=== PATIENT | male | born 1950 | race Hispanic/Latino ===

== ENCOUNTER 2017-09-21 08:55 | Outpatient (CLI) | payer MEDICARE, MEDICAID ==
--- NOTE | 2017-09-24 10:51 | PFT ---
PATIENT HISTORY: HEIGHT: 65 IN WEIGHT: 165 LBS SMOKER: SMOKES HOW LON YEARS PACKS PER DAY: 1 PACK/4 DAYS PRODUCTIVE COUGH: LUNG DISEASE: PHYSICIAN INTERPRETATION FINAL REPORT: FEV1 is normal at 2.73, FVC is normal at 3.24, FEF 25-75 is normal. Maximum voluntary ventilation is reduced. Total lung capacity is normal. There is air trapping. Diffusion was not measured. IMPRESSION: Overall, this spirometry shows normal expiratory flows with normal lung volumes air trapping is noted. Clinical correlation is recommended Hydroelectric Operator: REGINA Visual Manager: REGINA TOBIN
== END 2017-09-21 08:56 | disposition home or self-care (01) ==
LOC: CP 08:55
PROVIDERS: ATTEND Internal Medicine
DX: J44.9 Chronic obstructive pulmonary disease, unspecified (principal)
CPT/HCPCS: 94060; 94727

== ENCOUNTER 2017-12-05 09:03 | Emergency (ER) | payer MEDICARE, MEDICAID ==
--- NOTE | 2017-12-05 09:48 | RAD ---
CHEST 2 VIEWS: Date: 12/05/17 HISTORY: Dyspnea. COMPARISON: 06/13/04. FINDINGS: Normal cardiac silhouette. Pulmonary vessels and hilum are normal. No consolidation or mass. No pneum othorax or osseous abnormalities. IMPRESSION: No acute cardiopulmonary process. POS: [facility]
[2017-12-05] MEDS ORDERED: Dexamethasone 4 mg/ml Vial ONE (13:01)
== END 2017-12-05 14:43 | disposition home or self-care (01) ==
LOC: ERS 09:03
DX: R05 Cough (principal); R06.2 Wheezing; J44.9 Chronic obstructive pulmonary disease, unspecified; I25.10 Atherosclerotic heart disease of native coronary artery without angina pectoris; E11.9 Type 2 diabetes mellitus without complications; I10 Essential (primary) hypertension; E78.5 Hyperlipidemia, unspecified; F17.210 Nicotine dependence, cigarettes, uncomplicated; I25.2 Old myocardial infarction
CPT/HCPCS: 71046; 94640; J1100; J7620

== ENCOUNTER 2018-01-02 08:43 | Emergency (ER) | payer MEDICARE, MEDICAID ==
[~2018-01-02 08:43] MED LIST: ISOVUE-370 76%-LOCM 1 ML ONE
[2018-01-02 09:56] LABS: #Basophils 0.1 thou/uL (0.0-0.2); #Eosinphils 0.2 thou/uL (0.0-0.7); #Lymphocytes 3.5 thou/uL (1.20-3.40); #Monocytes 0.6 thou/uL (0.11-0.59); #Neutrophils 4.6 thou/uL (1.40-6.50); %Basophils 0.9 % (0.0-1.0); %Lymphocytes 39.6 % (21.0-51.0); %Monocytes 6.1 % (0.0-10.0); %Neutrophils 51.3 % (42.0-75.0); Hemoglobin 16.2 g/dL (14.0-18.0); Mean Corpuscular HGB CONC 32.7 g/dL (32.0-36.0); Mean Corpuscular Hemoglobin 32.3 pg (27.0-31.0); Mean Corpuscular Volume 98.6 fl (80.0-94.0); Mean Platelet Volume 6.8 fL (7.4-10.4); Platelet Count 278 thou/uL (130-400); RBC Distribution Width 12.9 % (11.5-14.5); Red Blood Cell (RBC) Count 5.04 mill/uL (4.70-6.10); White Blood Cell (WBC) Count 8.9 thou/uL (4.8-10.8)
[2018-01-02 10:16] LABS: ALT (SGPT) 69 U/L (8-55); AST (SGOT) 43 U/L (5-34); Albumin 4.6 g/dL (3.4-4.8); Alkaline Phosphatase 82 U/L (40-150); Anion Gap 13 mmol/L (10-20); BUN (Urea Nitrogen) 17 mg/dL (8.4-25.7); Bilirubin, Total 0.4 mg/dL (0.2-1.2); CRP (Inflammatory) Less than 0.50 mg/dL (= or < 0.5); Calc. Creatinine Clearance 0 mL/min (70-130); Calcium 10.1 mg/dL (7.8-10.44); Carbon Dioxide 22 mmol/L (23-31); Chloride 106 mmol/L (98-107); Estimated GFR-MDRD 72; Globulin 3.7 g/dL (2.4-3.5); Glucose 182 mg/dL (80-115); Potassium 4.6 mmol/L (3.5-5.1); Protein, Total 8.3 g/dL (5.8-8.1); Sodium 136 mmol/L (136-145)
--- NOTE | 2018-01-02 12:33 | CT ---
CT NECK WITH CONTRAST: Multiple tomograms were obtained through the neck with IV enhancement. HISTORY: Lump on back of neck with pain. A marker is placed at site of concern which is in the retroareolar region in the right neck. FINDINGS: Parotid glands appear unremarkable. Submandibular gland is unremarkable. Sublingual gland is unremarkable. Thyroid unremarkable. Nasopharynx unremarkable. In the oropharynx, there is asymmetric density in the left tonsillar are which obscures the left rodriguez droglottic angle. This should be evaluated through direct examination to rule out a tonsillar mass. The area of concern measures approximately 2 cm AP dimension and may exhibit some mild enhancement. There is also abnormal asymmetry extending inferiorly into the hypopharynx on the left which appears to involve the left vallecula piriform sinus. This is concerning for a neoplastic process. The priscilla nx appears unremarkable. Marbleizer space unremarkable. Retropharyngeal space unremarkable. Atherosclerotic change is seen i n the proximal left internal carotid artery which may represent mild stenosis. Unremarkable level I lymph nodes. Level II lymph nodes are nonspecific bilaterally. Jugulodigastric node on the right measures 1.3 cm. There is a tiny amount of level II lymph nodes. Nonspecific level IV lymph nodes are seen in the sup raclavicular region bilaterally which are subcentimeter. No level II adenopathy is seen. There appears to be a lipoma in the posterior right neck at the site of the marker which probably rep resents an intramuscular lipoma extending to the subcutaneous tissues measuring 2.5 cm AP dimension x 1.0 cm width. This probably corresponds to the palpable nodule. Paranasal sinuses and mastoids are well aerated. There are mild to moderate degenerative changes in the cervical spine. There is mucous retention cyst in the left maxillary antrum measuring approximately 1.5 cm. IMPRESSION: 1. Abnormal density involving the palatine tonsil on the left in the oropharynx producing asymmetry. There is asymmetry which appears to extend inferiorly into the vallecula and left piriform sinus. Neoplasm should be excluded. Recommend ENT consultation and direct examination. 2. There is evidence of a lipoma extending to the subcutaneous tissues of posterior right neck in th e area of the skin marker. POS: [facility]
--- NOTE | 2018-01-02 12:40 | CT ---
CT CHEST WITHOUT CONTRAST: HISTORY: Evaluate for mass. TECHNIQUE: Multiple axial tomograms obtained through the chest without IV enhancement. FINDINGS: The lung smith are clear. No effusion. No infiltrate. No evidence of pulmonary mass or nodule. The mediastinum is unremarkable. Images through the upper abdomen are unremarkable. IMPRESSION: Unremarkable CT chest. POS: [facility]
== END 2018-01-02 12:35 | disposition home or self-care (01) ==
LOC: ERS 08:43
DX: D17.0 Benign lipomatous neoplasm of skin and subcutaneous tissue of head, face and neck (principal); J39.2 Other diseases of pharynx; I25.2 Old myocardial infarction; E11.9 Type 2 diabetes mellitus without complications; I10 Essential (primary) hypertension; E78.5 Hyperlipidemia, unspecified; F17.210 Nicotine dependence, cigarettes, uncomplicated; Z79.4 Long term (current) use of insulin; Z79.82 Long term (current) use of aspirin; Z79.899 Other long term (current) drug therapy
CPT/HCPCS: 70491; 71250; 80053; 85025; 85652; 86140; 99406

== ENCOUNTER 2018-02-24 08:44 | Outpatient (CLI) | payer MEDICARE, MEDICAID ==
--- NOTE | 2018-02-24 11:12 | CT ---
CT PULMONARY LUNG SCAN WITHOUT CONTRAST: INDICATION: A 67-year-old male with a 40+ pack smoking history. FINDINGS: There are some areas of subsegmental volume loss within the lower lobe. No suspicious pulmonary nodu le is evident. There is scattered emphysema. There are coronary artery and thoracic aortic calcific ations. There is mild ectasia of the ascending artery measuring 4 cm. There is mild aneurysmal dila tation of the aortic measuring 3.2 cm. The descending thoracic aorta at the level of the right main pulmonary artery measures 3 cm. No lymphadenopathy is evident. The gallbladder is surgically absent . . There is scattered degenerative change. IMPRESSION: 1. Lung RADS category 2 - benign. Recommend annual low-dose CT evaluation of the lungs. 2. Category S: Emphysema, coronary artery thoracic aorta calcifications, and mild aneurysmal dilata tion of the aortic arch and descending thoracic aorta. POS: [facility]
== END 2018-02-24 08:45 | disposition home or self-care (01) ==
LOC: CT 08:44
PROVIDERS: ATTEND Family Medicine
DX: F17.210 Nicotine dependence, cigarettes, uncomplicated (principal); J43.9 Emphysema, unspecified; I25.10 Atherosclerotic heart disease of native coronary artery without angina pectoris; I70.0 Atherosclerosis of aorta; I71.2 Thoracic aortic aneurysm, without rupture
CPT/HCPCS: G0297

== ENCOUNTER 2018-03-16 10:33 | Observation (INO) | payer MEDICARE, MEDICAID ==
[2018-03-16 11:14] LABS: #Basophils 0.1 thou/uL (0.0-0.2); #Eosinphils 0.2 thou/uL (0.0-0.7); #Monocytes 0.6 thou/uL (0.11-0.59); #Neutrophils 5.1 thou/uL (1.40-6.50); %Eosinophils 2.2 % (0.0-10.0); %Lymphocytes 39.6 % (21.0-51.0); %Monocytes 5.8 % (0.0-10.0); %Neutrophils 51.5 % (42.0-75.0); Hemoglobin 15.4 g/dL (14.0-18.0); Mean Corpuscular HGB CONC 33.8 g/dL (32.0-36.0); Mean Corpuscular Hemoglobin 32.7 pg (27.0-31.0); Mean Corpuscular Volume 96.7 fl (80.0-94.0); Platelet Count 250 thou/uL (130-400); RBC Distribution Width 12.5 % (11.5-14.5); Red Blood Cell (RBC) Count 4.71 mill/uL (4.70-6.10)
[2018-03-16 11:27] LABS: ALT (SGPT) 61 U/L (8-55); AST (SGOT) 40 U/L (5-34); Albumin 4.3 g/dL (3.4-4.8); Alkaline Phosphatase 83 U/L (40-150); Anion Gap 10 mmol/L (10-20); BUN (Urea Nitrogen) 15 mg/dL (8.4-25.7); Bilirubin, Total 0.4 mg/dL (0.2-1.2); CK (CPK) 201 U/L (30-200); Calc. Creatinine Clearance 0 mL/min (70-130); Calcium 9.7 mg/dL (7.8-10.44); Carbon Dioxide 21 mmol/L (23-31); Chloride 108 mmol/L (98-107); Estimated GFR-MDRD 87; Globulin 3.4 g/dL (2.4-3.5); Glucose 164 mg/dL (80-115); Potassium 4.4 mmol/L (3.5-5.1); Protein, Total 7.7 g/dL (5.8-8.1); Sodium 135 mmol/L (136-145)
[2018-03-16 11:31] LABS: CKMB 6.3 ng/mL (0-6.6); Troponin I Less than 0.010 ng/mL (< 0.028)
--- NOTE | 2018-03-16 11:39 | RAD ---
SINGLE VIEW CHEST: Date: 03/16/18 COMPARISON: 07/01/17. HISTORY: Dizziness, near syncope, and chest pain. FINDINGS: Single view of the chest shows a normal sized cardiomediastinal silhouette. There is no evidence of c onsolidation, mass, or pleural effusion. The bones are unremarkable. IMPRESSION: No evidence of acute cardiopulmonary disease. POS: [facility]
--- NOTE | 2018-03-16 11:53 | CT ---
HEAD CT WITHOUT CONTRAST: Date: 03/16/18 HISTORY: Headache. Presyncopal episodes, intermittent. COMPARISON: 07/01/17. TECHNIQUE: A noncontrast head CT is performed from the skull base to the skull vertex. FINDINGS: No parenchymal hemorrhage or extra-axial hematoma. No midline shift. Basilar cisterns are patent. Bra in volume is age-appropriate. Cortical hsu-white matter differentiation is preserved. Ventricles and sulci are patent and symmetric. Calvarium is intact. Adequate aeration of the sinuses and mastoid ai r cells. Cavernous carotid atherosclerosis is noted. IMPRESSION: No acute intracranial process. POS: [facility]
--- NOTE | 2018-03-16 12:15 | PDOC.FPRHP ---
- History of Present Illness Chief Complaint: Chest Pain History of Present Illness: 67 yo male presents for evaluation of chest pain and a feeling of dizziness. He states he has had long standing chest pain episodes that have occurred for multiple years. He states he has not seen Dr. Leon, his road roller engineer, regularly because of financial problems. He states that he has been compliant with his medication regimen. He notes that the pain comes and goes. When it is most severe he states it feels like electrical shocks and then it subsides. He states the pain does not radiate anywhere. He states that nothing makes the pain better. He states the pain is made worse with exertion such as walking. He notes that he does not do much else to exert himself any more. The pain is not reproducible and he did not take any of his home Nitro to try to make it better. He states that yesterday he had an episode of dizziness associated with the chest pains and that is what prompted him to be seen today. He notes that he did not have weakness on one side or the other. He denies vision changes, or loss of consciousness. He states he did not fall down. He states that the dizziness went away when he would rest. No other complaints today. ED Course: 81 mg Aspirin - Allergies/Adverse Reactions Allergies Allergy/AdvReac Type Severity Reaction Status Date / Time No Known Allergies Allergy Verified 05/11/17 23:10 - Home Medications Medication Instructions Recorded Confirmed Type Atorvastatin Calcium [Lipitor] 40 mg PO HS 02/01/17 03/16/18 History Carvedilol 6.25 mg PO BID 02/01/17 03/16/18 History Clopidogrel Bisulfate [Clopidogrel] 75 mg PO DAILY 02/01/17 03/16/18 History Fenofibrate 145 mg PO DAILY 02/01/17 03/16/18 History Lisinopril 2.5 mg PO DAILY 02/01/17 03/16/18 History Pregabalin [Lyrica] 75 mg PO BID 02/01/17 03/16/18 History metFORMIN HCl 1,000 mg PO BID- 02/01/17 03/16/18 History Insulin Glargine,Hum.Rec.Anlog 30 unit SQ BID 03/10/17 03/16/18 History [Lantus Solostar] Aspirin [Aspirin EC] 81 mg PO DAILY 05/12/17 03/16/18 History Nitroglycerin [Nitrostat] 0.4 mg SL Q5MIN PRN 05/12/17 03/16/18 History Levels-3/DHA/EPA/Fish Oil [Fish Oil 1,000 mg PO DAILY 05/12/17 03/16/18 History 1,000 mg Softgel] - History PMHx: CAD s/p stent, CHF, DM2, GERD, OA, HLD, Tobacco abuse PSHx: Cholecystectomy, Right hand surgery, Stent placement FHx: Non-Contributory Social: Current everyday smoker, 1/2 PPD. Greater than 80 pack year history. No alcohol or drug use. Lives at home with . - Review of Systems General: denies: fever/chills, weight/appetite/sleep changes ENT: denies: nasal congestion Respiratory: reports: shortness of breath, exercise intolerance. denies: cough , congestion Cardiovascular: reports: chest pain. denies: palpitation, edema Gastrointestinal: reports: diarrhea. denies: nausea, vomiting, constipation, abdominal pain Genitourinary: denies: incontinence, dysuria Skin: denies: rashes, lesions Musculoskeletal: denies: pain, tenderness, stiffness, swelling, arthritis/ arthralgias Neurological: denies: numbness, syncope, seizure Psychological: denies: anxiety, depression - Vital signs BP: 145/79 HR: 66 RR: 14 Tmax: 97.9 Pox: 99% on RmAir Wt: 73 kg - Physical Exam Constitutional: awake, alert and oriented HEENT: PERRLA, grossly normal vision, grossly normal hearing, normal nasal mucosa -HEENT: Poor dentition Neck: supple Chest: no-tender to palpation Heart: RRR, normal S1/S2 Lungs: CTAB, no wheezing Abdomen: soft, non-tender, bowel sounds present, no masses/distention Musculoskeletal: normal structure, normal tone, ROM grossly normal Neurological: no focal deficit, CN II-XII intact, normal sensation Skin: no rash/lesions Heme/Lymphatic: no unusual bruising or bleeding Psychiatric: normal mood and affect, good judgment and insight, intact recent and remote memory FMR H&P: Results - Labs Result Diagrams: 03/16/18 10:50 03/16/18 10:50 Lab results: WBC 10.0 thou/uL (4.8-10.8) 03/16/18 10:50 Hgb 15.4 g/dL (14.0-18.0) 03/16/18 10:50 Hct 45.5 % (42.0-52.0) 03/16/18 10:50 MCV 96.7 fl (80.0-94.0) H 03/16/18 10:50 Plt Count 250 thou/uL (130-400) 03/16/18 10:50 Neutrophils % 51.5 % (42.0-75.0) 03/16/18 10:50 Sodium 135 mmol/L (136-145) L 03/16/18 10:50 Potassium 4.4 mmol/L (3.5-5.1) 03/16/18 10:50 Chloride 108 mmol/L (98-107) H 03/16/18 10:50 Carbon Dioxide 21 mmol/L (23-31) L 03/16/18 10:50 BUN 15 mg/dL (8.4-25.7) 03/16/18 10:50 Creatinine 0.87 mg/dL (0.6-1.3) 03/16/18 10:50 Glucose 164 mg/dL (80-115) H 03/16/18 10:50 Calcium 9.7 mg/dL (7.8-10.44) 03/16/18 10:50 Total Bilirubin 0.4 mg/dL (0.2-1.2) 03/16/18 10:50 AST 40 U/L (5-34) H 03/16/18 10:50 ALT 61 U/L (8-55) H 03/16/18 10:50 Alkaline Phosphatase 83 U/L (40-150) 03/16/18 10:50 Creatine Kinase 201 U/L (30-200) H 03/16/18 10:50 CK-MB (CK-2) 6.3 ng/mL (0-6.6) 03/16/18 10:50 Serum Total Protein 7.7 g/dL (5.8-8.1) 03/16/18 10:50 Albumin 4.3 g/dL (3.4-4.8) 03/16/18 10:50 - EKG Interpretation EK lead EKG shows normal sinus rhythm, Compared with previous EKG from, unchanged, Similar to old EKG, Conduction normal, ST segments normal, T waves normal, [place], left, Other findings include:, left ventricular hypertrophy. - Radiology Interpretation CT scan - head Status: report reviewed by me (No acute intracranial process) Chest x-ray Status: report reviewed by me (No evidence of acute cardiopulmonary disease) FMR H&P: A/P - Problem List (1) Stable angina Current Visit: No Status: Acute Code(s): I20.8 - OTHER FORMS OF ANGINA PECTORIS (2) Tobacco abuse Current Visit: No Status: Acute Code(s): Z72.0 - TOBACCO USE (3) CAD (coronary artery disease) Current Visit: No Status: Chronic Code(s): I25.10 - ATHSCL HEART DISEASE OF [place] CORONARY ARTERY W/O ANG PCTRS (4) Diabetes mellitus Current Visit: No Status: Chronic Code(s): E11.9 - TYPE 2 DIABETES MELLITUS WITHOUT COMPLICATIONS (5) Diabetic neuropathy Current Visit: No Status: Chronic Code(s): E11.40 - TYPE 2 DIABETES MELLITUS WITH DIABETIC NEUROPATHY, UNSP (6) HLD (hyperlipidemia) Current Visit: No Status: Chronic Code(s): E78.5 - HYPERLIPIDEMIA, UNSPECIFIED (7) HTN (hypertension) Current Visit: No Status: Chronic Code(s): I10 - ESSENTIAL (PRIMARY) HYPERTENSION - Plan 1) Stable angina - Trend toponins - Check Mg, Phos - Last stress in May 2017 was normal - Hold BB for stress in AM - Will order ECHO as he has not had a recent one - Continue ASA 2) CAD: - Continue ASA - Continue Clopidogrel - Continue statin 3) HTN: - Continue home meds 4) DM2: - Continue home regimen - SSI - accuchecks qACHS 5) HLD - Continue statin 6) DM neuropathy - continue lyrica 7) Tobacco abuse - Recommend cessation CODE STATUS: FULL CODE Disposition: Stable, Will admit to Telemetry Observation and await ECHO FMR H&P: Upper Level - Pertinent history 67 yo M here with chest pain. Pain is left-sided in nature, started yesterday evening. No alleviating factors he can recall, but worse with ambulation. Did not take any of his nitro at home yesterday. Pain in non-reproducible. States he felt dizzy and a little SOB with his chest pain. Denies any diaphoresis, N/ V. Received an aspirin in the ER. Sees Dr. Leon as outpt when he can afford it. Had stress test in May 2017 that was negative, last heart catheterization was done by Carolyn in 2014 which was clean at that time, notable only for patent LAD stent and EF 60-65%. - Pertinent findings PE: T: 97.9 P: 60 BP: 111/68 RR: 20 99% RA Gen: [place] male in NAD HEENT: PERRL, EOMI, MMM, no lymphadenopathy or thyromegaly CV: RRR no murmurs, distal pulses intact Pulm: CTAB, no wheezes or rhonchi Abd: soft, NT/ND, BS present, no masses or distention Ext: no cyanosis or edema MSK: LIN well, no joint or muscle pain or swelling Neuro: CN 2-12 intact, normal sensation Psych: A&O x3, appropriate in conversation - Plan Date/Time: 03/16/18 1213 67 yo M presenting with CP 1) Stable angina: Obs on telemetry. Continue to trend cardiac enzymes. Recheck EKG. Check Mg, Phos. Hold BB for stress in AM. Continue ASA. 2) CAD: Continue ASA, statin. 3) HTN: Continue lisinopril 4) DM2: SSI, accuchecks qACHS 5) HLD: statin 6) DM neuropathy: continue lyrica I, [Scott Samuel], have evaluated this patient and agree with findings/plan as outlined by internal auditor resident. Pertinent changes/additions are listed here. Attending Addendum - Attending Addendum Date/Time: 03/16/18 1405 I personally evaluated the patient and discussed the management with Dr. Molina on 03/16/18. I agree with the History, Examination, Assessment and Plan documented above with any addition or exceptions noted below. Patient's chest pain currently asymptomatic. Has not had stress test in almost 12 months, will get one this visit. Has frequent visits for chest pain, may consider outpatient establishment with PCP to keep patient from using ER.
[2018-03-16] MEDS ORDERED: Nitroglycerin 0.4 MG TAB (25 Tab Bottle) PO PRN (13:28)
[2018-03-16] MEDS ORDERED: Dextrose 5% in Water 1,000 ML IV PRN (13:28)
[2018-03-16] MEDS ORDERED: Dextrose 50% Abboject 50 ML SYRINGE SLOW IVP PRN (13:28)
[2018-03-16] MEDS ORDERED: HumaLOG 300 UNITS/3 ML VIAL SC PRN (13:28)
[2018-03-16] MEDS ORDERED: Acetaminophen 325 MG TAB PO PRN (13:28)
[2018-03-16] MEDS ORDERED: Ondansetron ODT 4 MG TAB PO PRN (13:28)
[2018-03-16] MEDS ORDERED: Nitroglycerin 0.4 MG TAB (25 Tab Bottle) SL PRN (13:28)
[2018-03-16 13:53] VITALS: BMI 25.0
[2018-03-16 14:51] LABS: Magnesium 1.8 mg/dL (1.6-2.6); Phosphorus 2.8 mg/dL (2.3-4.7)
[2018-03-16 14:56] LABS: Troponin I Less than 0.010 ng/mL (< 0.028)
[2018-03-16] MEDS ORDERED: metFORMIN 500 MG TAB PO SCH (17:00)
[2018-03-16 17:18] LABS: Troponin I Less than 0.010 ng/mL (< 0.028)
[2018-03-16 19:47] VITALS: BP 126/64; TEMP 97.6
--- NOTE | 2018-03-16 19:55 | PDOC.EVN ---
Event Note - Event Note Event Note: Called to bedside by nurse after pt was threatening to leave. Per nurse, pt stated that he was dissatisfied with the food and did not want to be NPO after midnight. By the time I had gone to discuss care with the patient he had eloped. Per nurse, pt refused to sign AMA paperwork and stated he was leaving and not waiting for the Doctor to speak with him.
[2018-03-16] MEDS ORDERED: Insulin Glargine 30 UNITS in Pre-Filled Syringe 1 EACH SC SCH (21:00)
[2018-03-16] MEDS ORDERED: Atorvastatin Calcium 40 MG TAB PO SCH (21:00)
[2018-03-16] MEDS ORDERED: Non-Formulary Item 1 EACH (Insulin Glargine,Hum.Rec.Anlog [Lantus Solostar] 30 UNIT) SQ SCH (21:00)
[2018-03-16] MEDS ORDERED: Pregabalin 75 MG CAP PO SCH (21:00)
[2018-03-17] MEDS ORDERED: Clopidogrel Bisulfate 75 MG TAB PO SCH (09:00)
[2018-03-17] MEDS ORDERED: Enoxaparin Sodium 40 MG/0.4 ML SYRINGE SC SCH (09:00)
[2018-03-17] MEDS ORDERED: Lisinopril 2.5 MG TAB PO SCH (09:00)
[2018-03-17] MEDS ORDERED: Fish Oil 1,000 MG CAP PO SCH (09:00)
[2018-03-17] MEDS ORDERED: Aspirin 81 mg Enteric Coated Tablet PO SCH (09:00)
[2018-03-17] MEDS ORDERED: Fenofibrate Nanocrystallized 145 MG TAB PO SCH (09:00)
== END 2018-03-16 19:30 | disposition left against medical advice (07) ==
LOC: ERS 10:33 → 2SW 12:15
PROVIDERS: ADMIT Student in an Organized Health Care Education/Training Program; ATTEND Student in an Organized Health Care Education/Training Program
DX: I25.118 Atherosclerotic heart disease of native coronary artery with other forms of angina pectoris (principal); I11.0 Hypertensive heart disease with heart failure; I50.9 Heart failure, unspecified; E78.5 Hyperlipidemia, unspecified; E11.40 Type 2 diabetes mellitus with diabetic neuropathy, unspecified; F17.210 Nicotine dependence, cigarettes, uncomplicated; K21.9 Gastro-esophageal reflux disease without esophagitis; M19.90 Unspecified osteoarthritis, unspecified site; Z95.5 Presence of coronary angioplasty implant and graft; Z79.82 Long term (current) use of aspirin; Z79.4 Long term (current) use of insulin; Z79.899 Other long term (current) drug therapy; Z79.02 Long term (current) use of antithrombotics/antiplatelets
CPT/HCPCS: 70450; 71045; 82550; 82553; 83735; 84100; 84484 ×2; 93005; 94760; 99285; G0378; 36415; 80053; 84443; 85025

== ENCOUNTER 2018-08-24 19:38 | Emergency (ER) | payer MEDICARE, MEDICAID ==
[2018-08-24 20:30] LABS: #Basophils 0.1 thou/uL (0.0-0.2); #Eosinphils 0.3 thou/uL (0.0-0.7); #Lymphocytes 4.3 thou/uL (1.20-3.40); #Monocytes 0.7 thou/uL (0.11-0.59); #Neutrophils 7.6 thou/uL (1.40-6.50); %Basophils 0.6 % (0.0-1.0); %Eosinophils 2.5 % (0.0-10.0); %Lymphocytes 33.1 % (21.0-51.0); %Monocytes 5.6 % (0.0-10.0); %Neutrophils 58.2 % (42.0-75.0); Hemoglobin 15.1 g/dL (14.0-18.0); Mean Corpuscular HGB CONC 33.3 g/dL (32.0-36.0); Mean Corpuscular Hemoglobin 32.1 pg (27.0-31.0); Mean Corpuscular Volume 96.6 fL (78.0-98.0); Platelet Count 244 thou/uL (130-400); RBC Distribution Width 12.6 % (11.5-14.5)
[2018-08-24 20:54] LABS: Troponin I Less than 0.010 ng/mL (< 0.028)
[2018-08-24 20:57] LABS: ALT (SGPT) 52 U/L (8-55); AST (SGOT) 40 U/L (5-34); Albumin 4.4 g/dL (3.4-4.8); Alkaline Phosphatase 83 U/L (40-150); Anion Gap 13 mmol/L (10-20); BUN (Urea Nitrogen) 21 mg/dL (8.4-25.7); Bilirubin, Total 0.5 mg/dL (0.2-1.2); Calc. Creatinine Clearance 0 mL/min (70-130); Carbon Dioxide 23 mmol/L (23-31); Chloride 105 mmol/L (98-107); Estimated GFR-MDRD 64; Globulin 3.4 g/dL (2.4-3.5); Glucose 217 mg/dL (80-115); Potassium 4.1 mmol/L (3.5-5.1); Protein, Total 7.8 g/dL (5.8-8.1); Sodium 137 mmol/L (136-145)
[2018-08-24 21:04] LABS: CKMB 9.2 ng/mL (0-6.6)
[2018-08-24 21:07] LABS: Bilirubin Negative (Negative); Blood, Urine Negative (Negative); Clarity CLEAR (Clear); Glucose, Urine (Dipstick) Negative (Negative); Leukocyte Negative (Negative); Nitrite Negative (Negative); Protein, Urine (Dipstick) Negative (Neg-Trace); Specific Gravity, Urine 1.005 (1.002-1.036); Urobilinogen 0.2 mg/dL (0.2-1.0)
[2018-08-24 22:51] LABS: Troponin I Less than 0.010 ng/mL (< 0.028)
--- NOTE | 2018-08-24 23:18 | RAD ---
CHEST ONE VIEW: 08/24/18 HISTORY: Dyspnea. COMPARISON: 03/16/18. FINDINGS: The cardiac silhouette is magnified by projection. Pulmonary vasculature remains upper limits of norm al. Mild atelectasis at each lung base is stable. No lobar consolidation or evidence of pneumothorax. alarm security or surveillance monitor leads overlie the chest. IMPRESSION: Chronic type findings are stable. POS: [facility]
== END 2018-08-24 23:18 | disposition home or self-care (01) ==
LOC: ERS 19:38
DX: E11.649 Type 2 diabetes mellitus with hypoglycemia without coma (principal); E78.5 Hyperlipidemia, unspecified; I10 Essential (primary) hypertension; I25.2 Old myocardial infarction; F17.210 Nicotine dependence, cigarettes, uncomplicated; Z79.82 Long term (current) use of aspirin; Z79.4 Long term (current) use of insulin; Z79.899 Other long term (current) drug therapy
CPT/HCPCS: 36415; 71045; 80053; 81003; 82553; 84484; 85025; 93005

== ENCOUNTER 2019-02-26 07:51 | Emergency (ER) | payer MEDICARE, MEDICAID ==
[2019-02-26 08:30] LABS: #Basophils 0.1 thou/uL (0.0-0.2); #Eosinphils 0.4 thou/uL (0.0-0.7); #Lymphocytes 4.1 thou/uL (1.20-3.40); #Neutrophils 6.5 thou/uL (1.40-6.50); %Basophils 0.8 % (0.0-1.0); %Eosinophils 2.9 % (0.0-10.0); %Lymphocytes 34.2 % (21.0-51.0); %Monocytes 7.9 % (0.0-10.0); %Neutrophils 54.1 % (42.0-75.0); Hemoglobin 15.3 g/dL (14.0-18.0); Mean Corpuscular HGB CONC 33.1 g/dL (32.0-36.0); Mean Corpuscular Hemoglobin 32.1 pg (27.0-31.0); Mean Corpuscular Volume 97.1 fL (78.0-98.0); Mean Platelet Volume 7.3 fL (7.4-10.4); Platelet Count 213 thou/uL (130-400); RBC Distribution Width 12.7 % (11.5-14.5); Red Blood Cell (RBC) Count 4.78 mill/uL (4.70-6.10)
[2019-02-26 08:49] LABS: ALT (SGPT) 78 U/L (8-55); AST (SGOT) 44 U/L (5-34); Albumin 4.2 g/dL (3.4-4.8); Alkaline Phosphatase 89 U/L (40-150); Anion Gap 7 mmol/L (10-20); BUN (Urea Nitrogen) 16 mg/dL (8.4-25.7); Bilirubin, Total 0.4 mg/dL (0.2-1.2); CK (CPK) 214 U/L (30-200); Calc. Creatinine Clearance 0 mL/min (70-130); Calcium 9.4 mg/dL (7.8-10.44); Carbon Dioxide 29 mmol/L (23-31); Chloride 104 mmol/L (98-107); Estimated GFR-MDRD 85; Globulin 3.1 g/dL (2.4-3.5); Glucose 130 mg/dL (80-115); Potassium 4.4 mmol/L (3.5-5.1); Protein, Total 7.3 g/dL (5.8-8.1); Sodium 136 mmol/L (136-145)
[2019-02-26 09:02] LABS: PTT 26.6 SEC (22.9-36.1); Prothrombin Time 12.9 SEC (12.0-14.7)
--- NOTE | 2019-02-26 09:23 | RAD ---
Exam: Chest one view HISTORY:Syncope Comparison: 08/24/2018 FINDINGS: Lungs: Patchy left basilar density. Patchy right perihilar opacity. Cardiac silhouette: Normal size Pulmonary vessels: Mild enlargement of central pulmonary vasculature Pleural Spaces: Clear Pneumothorax: None Osseous abnormalities: None of acuity. IMPRESSION: Bilateral patchy alveolar opacities may relate to component of perihilar edema with left basilar atelectasis versus pneumonia. Recommend follow-up 2 view chest to confirm resolution.
--- NOTE | 2019-02-26 09:29 | CT ---
CT Brain WO Con: 02/26/2019 8:38 AM CLINICAL HISTORY: Dizziness. IMAGING TECHNIQUE: Multiple CT images were obtained of the brain without IV contrast. COMPARISON: March 16, 2018 FINDINGS: Extra axial spaces: Normal in size and morphology for the patient's age. Hemorrhage: None. Ventricular system: Normal in size and morphology for the patient's age. Basal cisterns: Normal. Cerebral parenchyma: Microvascular changes. Midline shift: None. Cerebellum: Normal. Brainstem: Normal. OTHER: Calvarium: Normal. Vascular system: Vascular calcifications (CT). Visualized Paranasal sinuses: Clear. Visualized Orbits: Normal. Visualized upper cervical spine: Normal. Sella and skull base: Normal. IMPRESSION: No acute intracranial abnormality. Stable chronic findings as above
[2019-02-26 09:51] LABS: Bilirubin Negative (Negative); Blood, Urine Negative (Negative); Clarity CLEAR (Clear); Glucose, Urine (Dipstick) 100 mg/dL (Negative); Leukocyte Negative (Negative); Nitrite Negative (Negative); Protein, Urine (Dipstick) Negative (Neg-Trace); Specific Gravity, Urine 1.007 (1.002-1.036); Urobilinogen 0.2 mg/dL (0.2-1.0)
--- NOTE | 2019-02-26 10:05 | RAD ---
TWO VIEWS OF THE CHEST: COMPARISON: None. HISTORY: Dizziness that began this morning and dyspnea. FINDINGS: Two views of the chest show normal sized cardiomediastinal silhouette. There is no evidence of consol idation, mass, or pleural effusion. Degenerative changes are seen in the spine and right shoulder. IMPRESSION: No evidence of acute cardiopulmonary disease. POS: [facility]
== END 2019-02-26 11:33 | disposition home or self-care (01) ==
LOC: ERS 07:51
DX: R42 Dizziness and giddiness (principal); R55 Syncope and collapse; I25.10 Atherosclerotic heart disease of native coronary artery without angina pectoris; I25.2 Old myocardial infarction; E11.9 Type 2 diabetes mellitus without complications; I10 Essential (primary) hypertension; E78.5 Hyperlipidemia, unspecified; F17.210 Nicotine dependence, cigarettes, uncomplicated; Z79.899 Other long term (current) drug therapy; Z79.82 Long term (current) use of aspirin; Z79.4 Long term (current) use of insulin
CPT/HCPCS: 70450; 71045; 71046; 80053; 81003; 82550; 83690; 83880; 84484; 85025; 85610; 85730; 93005

== ENCOUNTER 2019-07-02 16:09 | Emergency (ER) | payer MEDICARE, MEDICAID ==
[2019-07-02] MEDS ORDERED: HYDROcodone/Acetaminophen 5/325 mg Tablet ONE (17:05)
== END 2019-07-02 17:15 | disposition home or self-care (01) ==
LOC: ERS 16:09
DX: B02.9 Zoster without complications (principal); I25.2 Old myocardial infarction; I25.10 Atherosclerotic heart disease of native coronary artery without angina pectoris; E78.5 Hyperlipidemia, unspecified; F17.210 Nicotine dependence, cigarettes, uncomplicated
CPT/HCPCS: 99283

== ENCOUNTER 2019-09-21 20:18 | Observation (INO) | payer MEDICARE, MEDICAID ==
--- NOTE | 2019-09-21 21:13 | RAD ---
PORTABLE CHEST ONE VIEW: 09/21/19 at 8:40 p.m. HISTORY: Cough and shortness of breath. FINDINGS: Comparison made with exam of 04/19/19. The heart size is normal. The lungs are expanded without lobar consolidation, pneumothoraces, or pleu ral effusions. Minimal scarring in the left lung base is again seen. IMPRESSION: No acute process. POS: [facility]
[2019-09-21 21:14] LABS: #Basophils 0.1 thou/uL (0.0-0.2); #Eosinphils 0.2 thou/uL (0.0-0.7); #Lymphocytes 5.2 thou/uL (1.20-3.40); #Monocytes 0.8 thou/uL (0.11-0.59); #Neutrophils 7.3 thou/uL (1.40-6.50); %Basophils 0.7 % (0.0-1.0); %Eosinophils 1.6 % (0.0-10.0); %Lymphocytes 38.1 % (21.0-51.0); %Neutrophils 53.6 % (42.0-75.0); Hemoglobin 15.4 g/dL (14.0-18.0); Mean Corpuscular Hemoglobin 33.1 pg (27.0-31.0); Mean Corpuscular Volume 97.2 fL (78.0-98.0); Mean Platelet Volume 6.9 fL (7.4-10.4); Platelet Count 221 thou/uL (130-400); RBC Distribution Width 12.7 % (11.5-14.5); Red Blood Cell (RBC) Count 4.67 mill/uL (4.70-6.10); White Blood Cell (WBC) Count 13.7 thou/uL (4.8-10.8)
[2019-09-21 21:35] LABS: ALT (SGPT) 25 U/L (8-55); AST (SGOT) 20 U/L (5-34); Albumin 4.3 g/dL (3.4-4.8); Alkaline Phosphatase 147 U/L (40-110); Anion Gap 13 mmol/L (10-20); BUN (Urea Nitrogen) 15 mg/dL (8.4-25.7); Bilirubin, Total 0.3 mg/dL (0.2-1.2); Calc. Creatinine Clearance 0 mL/min (70-130); Calcium 9.5 mg/dL (7.8-10.44); Carbon Dioxide 26 mmol/L (23-31); Chloride 103 mmol/L (98-107); Estimated GFR-MDRD 58; Glucose 279 mg/dL (80-115); Potassium 4.2 mmol/L (3.5-5.1); Protein, Total 7.3 g/dL (5.8-8.1); Sodium 138 mmol/L (136-145)
--- NOTE | 2019-09-21 22:08 | PDOC.FPRHP ---
- History of Present Illness Chief Complaint: Dizziness History of Present Illness: 68 yo male w/ PMH of COPD, CHF, CAD, HTN, HLD, IDDMII comes in w/ c/c of dizziness. Pt coming in due to episodes of dizziness and vision changes. Reports been happening when laying down or when going to sleep. Reports going on for the last week. Pt states it feels like he is going to pass out. Pt has not had LOC. Pt denies any chest pain. Pt reports he is okay when walking. Pt denies any recent falls. Pt reports having cough for 2 weeks. Reports taking nyquil and cough drops. Pt reports productive sputum. Reports mucous colored. Cough has not been getting any better. Pt has off and on diarrhea which has been a chronic issue. Pt denies any episodes of hypoglycemia. Pt denies any numbness or tingling. Denies any recent weakness. Denies any blood in his stool or sputum. Family denies any slurred speech or change in mentation. - Allergies/Adverse Reactions Allergies Allergy/AdvReac Type Severity Reaction Status Date / Time No Known Allergies Allergy Verified 05/11/17 23:10 - Home Medications Medication Instructions Recorded Confirmed Type Atorvastatin Calcium [Lipitor] 40 mg PO HS 02/01/17 09/21/19 History Clopidogrel Bisulfate [Clopidogrel] 75 mg PO DAILY 02/01/17 09/21/19 History Lisinopril 2.5 mg PO DAILY 02/01/17 09/21/19 History metFORMIN HCl 1,000 mg PO BID- 02/01/17 09/21/19 History Insulin Glargine,Hum.Rec.Anlog 30 unit SQ BID 03/10/17 09/21/19 History [Lantus Solostar] Aspirin [Aspirin EC] 81 mg PO DAILY 05/12/17 09/21/19 History Metoprolol Succinate [Toprol XL] 25 mg PO BID 04/19/19 09/21/19 History Icosapent Ethyl [Vascepa] 1 gm PO BID- 09/21/19 09/21/19 History Comments: Below are the patients correct medications reviewed with him from his clinic chart. Vascepa 1 g BID Spiriva Proair Lisinopril 2.5mg daily Lantus 30u BID Toprol 25mg BID Metformin 1g BID Atorva 40 QHS Plavix 75mg daily - History PMHx: COPD, HTN, CHF, CAD s/p [place], IDDMII with neuropathy, GERD, OA SHx: Lumbar surgery, unknown year; Cholecystectomy FHx: Unk Social: 20+ pack year smoking, No etoh, drugs - Review of Systems General: denies: fever/chills, weight/appetite/sleep changes, night sweats, fatigue Eyes: reports: vision changes. denies: eye pain ENT: denies: nasal congestion, rhinorrhea Respiratory: reports: cough. denies: congestion, shortness of breath, exercise intolerance Cardiovascular: denies: chest pain, palpitation, edema, paroxysmal nocturnal dyspnea, orthopnea Gastrointestinal: reports: diarrhea (reports as chronic problem). denies: nausea, vomiting, constipation, abdominal pain, GI bleeding Genitourinary: denies: incontinence, dysuria, polyuria Skin: denies: rashes, lesions Musculoskeletal: denies: pain, tenderness, swelling, arthritis/arthralgias Neurological: denies: numbness, syncope, seizure, weakness Psychological: denies: anxiety, depression - Vital signs BP: [162/70] HR: [75] RR: [20] Tmax: [97.9] Pox: [96]% on [RA] Wt: [72 kg] - Physical Exam Constitutional: NAD, awake, alert and oriented, well developed HEENT: normocephalic and atraumatic, conjunctiva clear, grossly normal vision, grossly normal hearing, MMM, good dention Neck: supple, trachea midline, no JVD, no thyromegaly Heart: RRR, normal S1/S2, no murmurs/rubs/gallops, pulses present, no edema -Lungs: Some rales noted bilaterally. Decreased breath sounds bilaterally. No crackles noted. Abdomen: soft, non-tender, bowel sounds present -Abdomen: Mildly distended. Musculoskeletal: normal structure, ROM grossly normal Neurological: no focal deficit, CN II-XII intact, normal sensation, DTRs 2+ Skin: no rash/lesions, good turgor, capillary refill <2 seconds Heme/Lymphatic: no unusual bruising or bleeding, no purpura Psychiatric: normal mood and affect, good judgment and insight, intact recent and remote memory FMR H&P: Results - Labs Result Diagrams: 09/21/19 21:04 09/21/19 21:04 Lab results: WBC 13.7 thou/uL (4.8-10.8) H 09/21/19 21:04 Hgb 15.4 g/dL (14.0-18.0) 09/21/19 21:04 Hct 45.4 % (42.0-52.0) 09/21/19 21:04 MCV 97.2 fL (78.0-98.0) 09/21/19 21:04 Plt Count 221 thou/uL (130-400) 09/21/19 21:04 Neutrophils % 53.6 % (42.0-75.0) 09/21/19 21:04 Sodium 138 mmol/L (136-145) 09/21/19 21:04 Potassium 4.2 mmol/L (3.5-5.1) 09/21/19 21:04 Chloride 103 mmol/L (98-107) 09/21/19 21:04 Carbon Dioxide 26 mmol/L (23-31) 09/21/19 21:04 BUN 15 mg/dL (8.4-25.7) 09/21/19 21:04 Creatinine 1.23 mg/dL (0.7-1.3) 09/21/19 21:04 Glucose 279 mg/dL (80-115) H 09/21/19 21:04 Calcium 9.5 mg/dL (7.8-10.44) 09/21/19 21:04 Total Bilirubin 0.3 mg/dL (0.2-1.2) 09/21/19 21:04 AST 20 U/L (5-34) 09/21/19 21:04 ALT 25 U/L (8-55) 09/21/19 21:04 Alkaline Phosphatase 147 U/L (40-110) H 09/21/19 21:04 B-Natriuretic Peptide 14.6 pg/mL (0-100) 09/21/19 21:02 Serum Total Protein 7.3 g/dL (5.8-8.1) 09/21/19 21:04 Albumin 4.3 g/dL (3.4-4.8) 09/21/19 21:04 - Radiology Interpretation Chest x-ray Status: image reviewed by me, report reviewed by me (No acute process) FMR H&P: A/P - Problem List (1) Syncopal episodes Current Visit: No Status: Acute Code(s): R55 - SYNCOPE AND COLLAPSE (2) CAD (coronary artery disease) Current Visit: No Status: Chronic Code(s): I25.10 - ATHSCL HEART DISEASE OF [place] CORONARY ARTERY W/O ANG PCTRS (3) COPD (chronic obstructive pulmonary disease) Current Visit: No Status: Chronic (4) Diabetes mellitus Current Visit: No Status: Chronic Code(s): E11.9 - TYPE 2 DIABETES MELLITUS WITHOUT COMPLICATIONS (5) Diabetic neuropathy Current Visit: No Status: Chronic Code(s): E11.40 - TYPE 2 DIABETES MELLITUS WITH DIABETIC NEUROPATHY, UNSP (6) GERD (gastroesophageal reflux disease) Current Visit: No Status: Chronic Code(s): K21.9 - GASTRO-ESOPHAGEAL REFLUX DISEASE WITHOUT ESOPHAGITIS (7) HLD (hyperlipidemia) Current Visit: No Status: Chronic Code(s): E78.5 - HYPERLIPIDEMIA, UNSPECIFIED (8) HTN (hypertension) Current Visit: No Status: Chronic Code(s): I10 - ESSENTIAL (PRIMARY) HYPERTENSION - Plan Near Syncope Episodes -Pt reports having episodes of dizziness and vision changes when laying down. Denies when up and walking. Denies chest pain. -Initial trop .015. No EKG findings. will trend trops. -Will get ECHO as pt has hx of CHF with no recent recorded ECHO. -Pt had stress test back in 04/25. Records reviewed. Stress was normal at that time. -Will check carotid dopplers -Will check TSH, Mg, Phos and repeat CBC and CMP in AM. No anemia or electrolyte abnormalities noted. -Will check orthostatic blood pressures. -Will have PT/OT evaluate for any instability issues. COPD exacerbation -Pt having productive cough for last 2 weeks without any improvement. Denies any acute SOB. VSS. Possibly having mild exacerbation leading to dizziness. -Will tx with prednisone burst and oral doxy. -Will carleen duonebs with prn in between as needed for SOB. CAD, CHF -Pt does not show signs of fluid overload. No edema noted. -Will get ECHO IDDMII -Will continue home lantus 30u BID. BG elevated -Reviewed recent clinic records. Pt had been having episodes of hypoglycemia a month ago. Denies any recent low blood sugars. -Accuchecks ACHS, Mild SSI. -Will monitor and adjust regimen as needed. Chronic Diarrhea -Pt reports having diarrhea off and on. Pt was seen in clinic a month ago for this. Records reviewed. At that time thought to be having some gastritis. Pt denies any recent episodes. -If pt starts to have multiple loose stools may consider stool culture. Pt does not appear dehydrated. HTN -continue home meds. BP stable at this time. -Will check orthostatics as stated above. HLD -continue home meds GERD -continue home meds Tobacco Abuse -counseled on cessation DVT PPX: Lovenox Dispo: Pt possibly having mild COPD exacerbation. Will tx accordingly, could be leading to recent dizziness spells. Will do syncopal workup as above. Admit to tele obs for cardiac monitoring.
[2019-09-21] MEDS ORDERED: Aspirin Chewable 81 MG TAB ONE (23:22)
[2019-09-21 23:45] LABS: Magnesium 1.6 mg/dL (1.6-2.6); Phosphorus 3.5 mg/dL (2.3-4.7)
[2019-09-21] MEDS ORDERED: Dextrose 5% in Water 1,000 ML IV PRN (23:58)
[2019-09-21] MEDS ORDERED: Acetaminophen 325 MG TAB PO PRN (23:58)
[2019-09-21] MEDS ORDERED: Ondansetron ODT 4 MG TAB PO PRN (23:58)
[2019-09-21] MEDS ORDERED: Meclizine HCl 25 MG TAB PO PRN (23:58)
[2019-09-21] MEDS ORDERED: Acetaminophen 650 MG Suppository PR PRN (23:58)
[2019-09-21] MEDS ORDERED: Calcium Carbonate 500 MG ChewTAB PO PRN (23:58)
[2019-09-21] MEDS ORDERED: Dextrose 50% Abboject 50 ML SYRINGE SLOW IVP PRN (23:58)
[2019-09-21] MEDS ORDERED: Guaifenesin DM 100-10/5 ML UDCUP PO PRN (23:58)
[2019-09-21] MEDS ORDERED: Ondansetron PF 4 MG/2 ML Vial IVP PRN (23:58)
[2019-09-22] MEDS ORDERED: Enoxaparin Sodium 40 MG/0.4 ML SYRINGE SC SCH (00:15)
[2019-09-22] MEDS ORDERED: Doxycycline 100 MG CAP PO SCH (00:15)
[2019-09-22] MEDS: Benzonatate 100 MG CAP PO PRN ×2 (00:27→20:27)
[2019-09-22 01:44] LABS: Troponin I 0.012 ng/mL (< 0.028)
[2019-09-22 02:32] VITALS: BMI 28.0
[2019-09-22 04:18] LABS: ALT (SGPT) 22 U/L (8-55); AST (SGOT) 18 U/L (5-34); Albumin 3.7 g/dL (3.4-4.8); Alkaline Phosphatase 100 U/L (40-110); Anion Gap 9 mmol/L (10-20); BUN (Urea Nitrogen) 12 mg/dL (8.4-25.7); Bilirubin, Total 0.2 mg/dL (0.2-1.2); Calc. Creatinine Clearance 77 mL/min (70-130); Carbon Dioxide 25 mmol/L (23-31); Chloride 108 mmol/L (98-107); Estimated GFR-MDRD 77; Globulin 2.9 g/dL (2.4-3.5); Glucose 142 mg/dL (80-115); Potassium 3.9 mmol/L (3.5-5.1); Protein, Total 6.6 g/dL (5.8-8.1); Sodium 138 mmol/L (136-145)
[2019-09-22 04:21] LABS: Troponin I Less than 0.010 ng/mL (< 0.028)
[2019-09-22 04:55] LABS: Hemoglobin 14.5 g/dL (14.0-18.0); Lymphocytes 44 % (21-51); MDiff Complete? YES; Mean Corpuscular HGB CONC 33.7 g/dL (32.0-36.0); Mean Corpuscular Volume 97.8 fL (78.0-98.0); Mean Platelet Volume 6.8 fL (7.4-10.4); Monocytes 6 % (0-10); Neutrophil 50 % (42-75); Platelet Count 198 thou/uL (130-400); Platelet Morphology Comment Appears Adequate; RBC Distribution Width 12.6 % (11.5-14.5); Red Blood Cell (RBC) Count 4.41 mill/uL (4.70-6.10); White Blood Cell (WBC) Count 10.4 thou/uL (4.8-10.8)
[2019-09-22] MEDS: Insulin Glargine 30 UNITS in Pre-Filled Syringe 1 EACH SC SCH (08:11)
[2019-09-22] MEDS: Enoxaparin Sodium 40 MG/0.4 ML SYRINGE SC SCH (08:13)
[2019-09-22] MEDS: Aspirin 81 mg Enteric Coated Tablet PO SCH (08:14)
[2019-09-22] MEDS: predniSONE 50 MG TAB PO SCH (08:14)
[2019-09-22] MEDS: Clopidogrel Bisulfate 75 MG TAB PO SCH (08:14)
[2019-09-22] MEDS: Lisinopril 2.5 MG TAB PO SCH (08:14)
[2019-09-22] MEDS: metFORMIN 500 MG TAB PO SCH ×2 (08:14→16:07)
--- NOTE | 2019-09-22 08:57 | ULT ---
CAROTID ULTRASOUND: HISTORY: Dizziness and vision change. COMPARISON: 11/04/2014. TECHNIQUE: Escobar scale, color flow, Doppler imaging and spectral waveform analysis was performed of the carotid a nd vertebral arteries. FINDINGS: RIGHT CAROTID: No significant atherosclerotic disease. Peak systolic velocity of the common carotid artery is 64.6 cm/s. Peak systolic velocity of the internal carotid artery is 79.1 cm/s. Systolic ICA to CCA ratio is 1.2. LEFT CAROTID: No significant atherosclerotic disease. Peak systolic velocity of the common carotid artery is 66.9 cm/s. Peak systolic velocity of the internal carotid artery is 73.5 cm/s. Systolic ICA to CCA ratio is 1.10. Antegrade flow in bilateral vertebral arteries. IMPRESSION: No sonographic evidence of hemodynamically significant stenosis. POS: NIYAH
[2019-09-22] MEDS ORDERED: Non-Formulary Item 1 EACH (Insulin Glargine,Hum.Rec.Anlog [Lantus Solostar] 30 UNIT) SQ SCH (09:00)
[2019-09-22] MEDS ORDERED: FLU VACC TS2019-20(65YR UP)/PF 180 MCG/0.5 ML SYRINGE IM ONE (09:00)
[2019-09-22] MEDS ORDERED: Insulin Glargine 30 UNITS in Pre-Filled Syringe 1 EACH SC SCH ×2 (09:00→21:00)
[2019-09-22] MEDS: HumaLOG 300 UNITS/3 ML VIAL SC PRN ×2 (11:48→16:07)
--- NOTE | 2019-09-22 15:07 | HP ---
Please see the note from Dr. Mahoney for which I agree. The patient was seen, evaluated, discussed and examined with the resident. Please see also the progress note from today from Dr. Quiros for which I agree. HISTORY OF PRESENT ILLNESS: A 68-year-old gentleman with significant past medical history including COPD, CHF, coronary artery disease, hypertension, lipids, and diabetes, who came in just kind of vague symptoms of dizziness and lightheadedness for the last week. Nothing extreme. It is like the COPD is a little bit exacerbated, a little coughing and wheezing and coughing spells would cause some of this. was noted on telemetry that he has second-degree heart block and it is difficult to say if it is type 1 or type 2. Does not sound like he was necessarily having symptoms when this is happening now. ALLERGIES: ALL PER THE RESIDENT'S HISTORY AND PHYSICAL FOR WHICH I AGREE. HOME MEDICATIONS: All per the resident's history and physical for which I agree. PAST MEDICAL HISTORY: All per the resident's history and physical for which I agree. PAST SURGICAL HISTORY: All per the resident's history and physical for which I agree. FAMILY HISTORY: All per the resident's history and physical for which I agree. SOCIAL HISTORY: All per the resident's history and physical for which I agree. REVIEW OF SYSTEMS: All per the resident's history and physical for which I agree. PHYSICAL EXAMINATION: LUNGS: A little bit tight, slightly decreased breath sounds. NEUROLOGIC: Otherwise neurologic exam is normal. CARDIOVASCULAR: Regular rate and rhythm. EXTREMITIES: Show no edema. Initial blood workup was fairly benign except for white count being little bit high at 13. Blood sugar was 279, but known diabetic. Chest x-ray looked fairly normal. ASSESSMENT: 1. Lightheaded, almost presyncope. 2. Chronic obstructive pulmonary disease exacerbation. 3. Second-degree atrioventricular block, unclear if type 1 or type 2. 4. Diabetes. 5. Diabetic neuropathy. 6. Lipids. 7. Hypertension. PLAN: We are getting carotid ultrasounds basically a stroke-like workup and get Cardiology's opinion on the second degree block and obviously follow electrolytes, etc., for that. Now currently on antibiotics, steroids, and nebulizers for the COPD exacerbation. Job ID: [id number]
--- NOTE | 2019-09-22 18:59 | PRG ---
DATE OF SERVICE: HISTORY OF PRESENT ILLNESS: Mr. Lr is a pleasant patient of Dr. Leon, history of coronary artery disease, admitted with near syncopal episodes, being going on a few days, had an episode of 2:1 AV block today. No chest pain or pressure. He has otherwise been doing well. MEDICATIONS: At home, he was taking metoprolol succinate 25 mg twice a day as well as lisinopril as well as atorvastatin, Plavix, and aspirin. PAST MEDICAL HISTORY: He has a history of coronary stent implantation. Dr. Leon did a cardiac catheterization in November 2014. No obstructions. Widely patent stent. He had a stress test this summer, which showed no ischemia. PHYSICAL EXAMINATION: VITAL SIGNS: Blood pressure 124/74 and pulse 80. LUNGS: Clear. CARDIAC: Normal S1, normal S2. ABDOMEN: Soft and nontender. EXTREMITIES: No edema. LABORATORY DATA: EKG did show some periods of second-degree AV block type 1 with progressively longer AK intervals followed by nonconducted P wave. Has some episodes of 2:1 AV block. The QRS duration is normal. ASSESSMENT: 1. Coronary artery disease, appears stable. 2. Dizziness and lightheadedness, could potentially be related to the atrioventricular block, especially when he has 2:1 block. PLAN: 1. Stop metoprolol. 2. Observe for at least until least tomorrow to see if these symptoms will resolve. No indication for pacemaker at the present time. Job ID: [id number]
[2019-09-22] MEDS ORDERED: Atorvastatin Calcium 40 MG TAB PO SCH (21:00)
--- NOTE | 2019-09-23 06:22 | PDOC.FM ---
- Subjective Subjective: Mr. Lr was walking around his room at the time of evaluation. He stated that he felt well and had been ambulating without difficulty. He denied any acute overnight events such as syncopal episodes, feelings of light-headedness, chest pain or shortness of breath. He states that he hoped that he would be DC'd this AM. - Objective Vital Signs & Weight: Vital Signs (12 hours) Temp Pulse Resp BP Pulse Ox 09/23/19 05:10 98.2 F 72 16 119/57 L 96 09/23/19 00:51 73 16 95 09/22/19 23:08 98.1 F 75 20 110/54 L 95 09/22/19 19:32 98.1 F 95 20 92/56 L 95 09/22/19 19:08 88 18 95 Weight Weight 76.476 kg I&O: 09/21/19 09/22/19 09/23/19 06:59 06:59 06:59 Intake Total 540 990 Output Total 1225 Balance -685 990 Result Diagrams: 09/22/19 03:50 09/22/19 03:50 Phys Exam - Physical Examination Constitutional: NAD HEENT: moist MMs, sclera anicteric, TM's clear Neck: no nodes, supple, full ROM Respiratory: no wheezing, no rales, no rhonchi, clear to auscultation bilateral Cardiovascular: RRR, no significant murmur, no rub Gastrointestinal: soft, non-tender, no distention Musculoskeletal: pulses present +2 pulses at Radial Arteries Neurological: non-focal, moves all 4 limbs Lymphatic: no nodes Psychiatric: normal affect Dx/Plan - Plan Plan: # Near Syncopal Episode -Patient reports having episodes of dizziness and vision changes when laying down -Trops: 0.015, 0.012, < 0.010 -EKG: Possible LVH, age-intederminate infarct -Echo: 60-65%, mild-moderate Mitral Regurgitation -Stress Test from 04/25 was WNL -Carotid Doppler US: No significant stenosis -Orthostatics: Negative -TSH: 1.5389 / M.6 / Phos: 3.5 -No anemia or electrolyte abnormalities noted -PT/OT Consult: Pending # COPD Exacerbation -Patient reports productive cough for 2 weeks - possible exacerbation -Prednisone Burst Doxycycline -Scheduled DuoNebs w/ PRNs as needed for SOB. # CAD, CHF -No signs of fluid overload on physical exam -Echo: See Above # IDDMII -Blood Glucose elevated on presentation - currently at goal (120) -Will continue home Lantus 30U BID -Denies any recent episodes of hypoglycemia -Accuchecks ACHS -Mild SSI -Will continue to monitor # Chronic Diarrhea -Patient reports sporadic diarrhea - denies any recent episodes -Consider Stool Studies if diarrhea persists # HTN -BP: 119/57 on 09/23 -Orthostatics: Negative -Will continue to monitor # HLD -Continue home medication regimen # GERD -Continue home medication regimen # Tobacco Abuse -Counseled on cessation DVT PPX: Lovenox Dispo: Cardiovascular work-up has been unremarkable thus far - patient possibly having mild COPD exacerbation. Continue with steroid and antibiotic regimen as per above. Expected LOS < 24H.
[2019-09-23 08:15] VITALS: BP 119/58; TEMP 97.8
[2019-09-23] MEDS ORDERED: Doxycycline 100 MG CAP PO SCH (09:00)
[2019-09-23] MEDS: Lisinopril 2.5 MG TAB PO SCH (09:36)
[2019-09-23] MEDS: predniSONE 50 MG TAB PO SCH (09:36)
[2019-09-23] MEDS: metFORMIN 500 MG TAB PO SCH (09:36)
[2019-09-23] MEDS: Insulin Glargine 30 UNITS in Pre-Filled Syringe 1 EACH SC SCH (09:37)
[2019-09-23] MEDS: Enoxaparin Sodium 40 MG/0.4 ML SYRINGE SC SCH (09:37)
[2019-09-23] MEDS: Aspirin 81 mg Enteric Coated Tablet PO SCH (09:37)
[2019-09-23] MEDS: Clopidogrel Bisulfate 75 MG TAB PO SCH (09:37)
--- NOTE | 2019-09-23 11:23 | CON ---
DATE OF CONSULTATION: Please see note from Dr. Rolo Urrutia, for which I agree. The patient was seen, evaluated, discussed and examined with the residents by bedside. The patient feels completely fine, walking in the hallways. Feels good. No dizziness. No major shortness of breath. He is being treated for COPD exacerbation with antibiotics and steroids. Diabetes has been fairly well controlled. Awaiting on carotid Dopplers. Cardiology decided to stop the metoprolol as he was having some second-degree block. So otherwise, should be able to go home. As seems fine, otherwise a completely normal exam. Job ID: [id number]
--- NOTE | 2019-09-24 14:49 | DIS ---
DATE OF ADMISSION: 09/21/2019 DATE OF DISCHARGE: 09/23/2019 RESIDENT: Rolo Urrutia MD ADMITTING/ATTENDING: Cordell Lopez MD DISCHARGE ATTENDING: Rolo Urrutia MD CONSULTS: Valentín Han MD, Cardiology. PROCEDURES: 1. Chest x-ray, which revealed no acute processes. 2. Carotid Doppler ultrasound, which revealed no sonographic evidence of hemodynamically significant stenosis. 3. EKG performed in the ER on presentation which revealed moderate voltage criteria for LVH, normal variant. Cannot rule out septal infarct, age indeterminate. PRIMARY DIAGNOSIS: Near-syncope. SECONDARY DIAGNOSES: Coronary artery disease, hypertension, hyperlipidemia, diabetes, anxiety, diabetic neuropathy, lumbar stenosis and neurogenic claudication, stable angina, chronic obstructive pulmonary disease, and gastroesophageal reflux disease. DISCHARGE MEDICATIONS: Doxycycline 100 mg p.o. b.i.d. and prednisone 50 mg p.o. daily, both for one day. DISCONTINUED MEDICATIONS: 1. Acetaminophen 650 mg p.o. q.4 hours. 2. Albuterol/ipratropium 3 mL nebulizer q.6 hours. 3. Aspirin 81 mg p.o. daily. 4. Atorvastatin 40 mg p.o. daily. 5. Tessalon Perles 100 mg p.o. q.4 hours. 6. Clopidogrel 75 mg p.o. daily. 7. Lovenox 40 mg subcutaneous daily. 8. Robitussin DM 15 mL p.o. q.4 hours. 9. Lantus 30 units b.i.d. 10. Insulin human lispro mild sliding scale. 11. Lisinopril 2.5 mg p.o. daily. 12. Meclizine 25 mg p.o. q.8 hours. 13. Metformin 1000 mg p.o. b.i.d. HISTORY OF PRESENT ILLNESS/HOSPITAL COURSE: Mr. Lr is a 68-year-old male with past medical history significant for COPD, CHF, coronary artery disease, hypertension, hyperlipidemia, diabetes type 2, comes in for dizziness. The patient states that he had an episode of dizziness that was associated with vision changes. Reports they have been happening when lying down or going to sleep. The patient reports lasting for about one week. The patient states it feels like he was going to pass out. The patient denies having a loss of consciousness, chest pain, or difficulty with ambulation. He denies any recent falls. He has had a cough for two weeks, reportedly takes NyQuil and cough drops with increase in productive sputum, reports mucus colored green. He has also had intermittent diarrhea, which has been a chronic issue for him. He denies episodes of hypoglycemia, numbness, tingling , recent weakness, blood in the stool, as well as slurred speech and change in mentation. During his hospitalization, he was worked up with multiple imaging modalities which are mentioned elsewhere in this note, the most likely etiology for his near syncopal episode is most likely a combination of a COPD exacerbation along with stable coronary artery disease as well as intermittent AV block type 1. The patient had several episodes of this, but he was monitored on telemetry the entire time and denied any symptoms. He continued to improve during his time here in the hospital and his physical health improved greatly. He was able to ambulate without difficulty up and down the hallways as well as maintain oral intake and void and stool without difficulty. Once acute cardiopulmonary processes were ruled out for his near syncopal episode, he was planned for discharge. Prior to discharge, his vital signs revealed temperature of 97.8, heart rate of 80 beats per minute, blood pressure of 119/58, respirations 16 per minute, O2 saturations 96% on room air. Laboratory values revealed a white blood cell count of 10.4, hemoglobin 14.5, hematocrit 43.1, platelet count of 198. Sodium 138, potassium 3.9, chloride 108 , carbon dioxide 25, BUN 12, creatinine 0.97, glucose 120, phosphorus 3.5, magnesium 1.6, total bilirubin 0.2, AST 18, ALT 22, alkaline phosphatase 100. Troponins were 0.015, 0.012 and 0.010, all of which are in the low risk category. TSH was recorded as being 1.5389. He was evaluated by Cardiology and was deemed stable for discharge. DISPOSITION: Stable. DISCHARGE INSTRUCTIONS: 1. Location: Home. 2. Diet: Heart healthy and carbohydrate conscious. 3. Activity: No restrictions. 4. Followup: The patient was encouraged to follow up with his primary care provider in 1 to 2 weeks. Job ID: [id number] [facility]
== END 2019-09-23 11:22 | disposition home or self-care (01) ==
LOC: ERS 20:18 → 2SW 23:48
PROVIDERS: ADMIT Family Medicine; ATTEND Family Medicine
DX: R55 Syncope and collapse (principal); R42 Dizziness and giddiness; J44.1 Chronic obstructive pulmonary disease with (acute) exacerbation; I11.0 Hypertensive heart disease with heart failure; I50.9 Heart failure, unspecified; E11.40 Type 2 diabetes mellitus with diabetic neuropathy, unspecified; I25.118 Atherosclerotic heart disease of native coronary artery with other forms of angina pectoris; K52.9 Noninfective gastroenteritis and colitis, unspecified; I44.0 Atrioventricular block, first degree; E78.5 Hyperlipidemia, unspecified; M19.90 Unspecified osteoarthritis, unspecified site; F17.210 Nicotine dependence, cigarettes, uncomplicated; I25.2 Old myocardial infarction; K21.9 Gastro-esophageal reflux disease without esophagitis; M48.062 Spinal stenosis, lumbar region with neurogenic claudication; F41.9 Anxiety disorder, unspecified; Z79.02 Long term (current) use of antithrombotics/antiplatelets; Z79.4 Long term (current) use of insulin; Z79.82 Long term (current) use of aspirin; Z79.899 Other long term (current) drug therapy; Z95.5 Presence of coronary angioplasty implant and graft
CPT/HCPCS: 71045; 80053; 82962 ×2; 83735; 83880; 84100; 84484 ×3; 85007; 85027; 87804 ×2; 90662; 93005; 93306; 93880; 94640 ×3; 96372 ×2; 97139 ×3; 99285; G0008; G0378 ×3; 36415; 36416; 84443; 85025; 90471; J1650; J1815; J7512; J7620

== ENCOUNTER 2020-03-09 09:02 | Emergency (ER) | payer MEDICARE, MEDICAID | END 2020-03-09 09:27 | disposition home or self-care (01) | LOC: ERS 09:02 | DX: M79.674 Pain in right toe(s) (principal); E11.9 Type 2 diabetes mellitus without complications; I25.10 Atherosclerotic heart disease of native coronary artery without angina pectoris; E78.5 Hyperlipidemia, unspecified; I10 Essential (primary) hypertension; F17.210 Nicotine dependence, cigarettes, uncomplicated; Z79.899 Other long term (current) drug therapy; Z79.4 Long term (current) use of insulin; Z79.82 Long term (current) use of aspirin; I25.2 Old myocardial infarction | CPT/HCPCS: 99281 ==

== ENCOUNTER 2020-04-11 12:49 | Emergency (ER) | payer MEDICAID, MEDICARE ==
[2020-04-11 13:24] LABS: #Basophils 0.1 thou/uL (0.0-0.2); #Eosinphils 0.2 thou/uL (0.0-0.7); #Lymphocytes 4.8 thou/uL (1.20-3.40); #Monocytes 0.7 thou/uL (0.11-0.59); #Neutrophils 7.3 thou/uL (1.40-6.50); %Basophils 0.8 % (0.0-1.0); %Eosinophils 1.3 % (0.0-10.0); %Lymphocytes 36.6 % (21.0-51.0); %Monocytes 5.1 % (0.0-10.0); %Neutrophils 56.2 % (42.0-75.0); Hemoglobin 16.8 g/dL (14.0-18.0); Mean Corpuscular HGB CONC 34.5 g/dL (32.0-36.0); Mean Corpuscular Hemoglobin 32.9 pg (27.0-31.0); Mean Corpuscular Volume 95.3 fL (78.0-98.0); Mean Platelet Volume 7.7 fL (7.4-10.4); Platelet Count 191 thou/uL (130-400); RBC Distribution Width 12.8 % (11.5-14.5); Red Blood Cell (RBC) Count 5.12 mill/uL (4.70-6.10)
--- NOTE | 2020-04-11 13:27 | RAD ---
RADIOGRAPH CHEST 1 VIEW: DATE: 04/11/2020 HISTORY: 69-year-old male with chest pain and dyspnea FINDINGS: There are no airspace densities, pulmonary edema, pneumothorax, or cardiomegaly. The lateral costophr enic angles are sharp. IMPRESSION: No acute cardiopulmonary findings.
[2020-04-11] MEDS ORDERED: Aspirin Chewable 81 MG TAB ONE (13:28)
[2020-04-11] MEDS ORDERED: Nitroglycerin 2% Ointment 1 INCH/1 GM Packet ONE (13:29)
[2020-04-11] MEDS ORDERED: Nitroglycerin 0.4 MG TAB 1 EACH ONE (13:36)
[2020-04-11 13:51] LABS: ALT (SGPT) 26 U/L (8-55); AST (SGOT) 28 U/L (5-34); Albumin 4.2 g/dL (3.4-4.8); Alkaline Phosphatase 160 U/L (40-110); Anion Gap 11 mmol/L (10-20); BUN (Urea Nitrogen) 18 mg/dL (8.4-25.7); Bilirubin, Total 0.4 mg/dL (0.2-1.2); CK (CPK) 329 U/L (30-200); Calc. Creatinine Clearance 0 mL/min (70-130); Calcium 9.4 mg/dL (7.8-10.44); Carbon Dioxide 22 mmol/L (23-31); Chloride 106 mmol/L (98-107); Estimated GFR-MDRD 73; Globulin 3.9 g/dL (2.4-3.5); Glucose 216 mg/dL (83-110); Potassium 4.3 mmol/L (3.5-5.1); Protein, Total 8.1 g/dL (5.8-8.1); Sodium 135 mmol/L (136-145)
--- NOTE | 2020-04-11 14:27 | PDOC.FPRHP ---
- History of Present Illness Chief Complaint: CP r/o History of Present Illness: Pt is a 69 yo male with PMH significant for CAD, NV w/ stent placement, HTN, HLD , DM who presented to the emergency department for left sided chset pain started at 0900 this am. He was on a tractor when the pain began. Denies any radiation of pain, denies any tenderness to palpation. He took two ASA 81 mg. He did endorse lightheadedness and generalized weakness. This DOES NOT feel like his previous NV. His last echo revealed EF 60-65%. Nuclear stress in 04/25 revealed no fixed reversible defects with normal wall motion. He does have hx of LAD stenting in 2014, done by Dr. Leon. Per evaluation by Dr. Han in Sep 25 the stent was patent at that time. Prepress Proofer: Carolyn [facility]: Kris ED Course: Given 5 mg sublingual Nitro - Allergies/Adverse Reactions Allergies Allergy/AdvReac Type Severity Reaction Status Date / Time No Known Allergies Allergy Verified 01/27/20 23:37 - Home Medications Medication Instructions Recorded Confirmed Type Atorvastatin Calcium [Lipitor] 40 mg PO HS 02/01/17 09/21/19 History Clopidogrel Bisulfate [Clopidogrel] 75 mg PO DAILY 02/01/17 09/21/19 History Lisinopril 2.5 mg PO DAILY 02/01/17 09/21/19 History metFORMIN HCl 1,000 mg PO BID-WM 02/01/17 09/21/19 History Insulin Glargine,Hum.Rec.Anlog 30 unit SQ BID 03/10/17 09/21/19 History [Lantus Solostar] Aspirin [Aspirin EC] 81 mg PO DAILY 05/12/17 09/21/19 History Glimepiride [Amaryl] 1 mg PO QAM-WM 09/21/19 09/21/19 History Icosapent Ethyl [Vascepa] 1 gm PO BID-WM 09/21/19 09/21/19 History Doxycycline [Vibramycin] 100 mg PO BID #3 cap 09/23/19 Rx Doxycycline [Vibramycin] 100 mg PO BID #3 cap 09/23/19 Rx Doxycycline [Vibramycin] 100 mg PO Q12HR #3 cap 09/23/19 Rx predniSONE 50 mg PO QAM-WM #1 tab 09/23/19 Rx predniSONE 50 mg PO QAM-WM #1 tab 09/23/19 Rx - History PMHx: CAD w/ stent placement, COPD, GERD, DM II, HLD, HTN PSHx: stent placement in 2015, back surgery FHx: CAD in brothers, dad from brain tumor, mother from unknown Social: smokes 1 pack every 3-4 days (at highest smoked 2 ppd last year, for many years), no EtOH, no ilicit drug use - Review of Systems General: denies: fever/chills, weight/appetite/sleep changes, fatigue Eyes: denies: vision changes ENT: denies: nasal congestion Respiratory: denies: cough, congestion, shortness of breath Cardiovascular: reports: chest pain. denies: palpitation, edema Gastrointestinal: denies: nausea, vomiting, diarrhea, constipation, abdominal pain Genitourinary: denies: dysuria Skin: denies: rashes, lesions, itching Musculoskeletal: denies: pain, tenderness, swelling, arthritis/arthralgias Neurological: denies: numbness, syncope, weakness Psychological: denies: anxiety, depression - Vital signs BP: 115/72 HR: 70 RR: 18 Tmax: 98.0 Pox: 96% on RA Wt: 72.6 kg - Physical Exam Constitutional: NAD, awake, alert and oriented, well developed HEENT: EOMI, grossly normal vision, grossly normal hearing, MMM Neck: FROM, trachea midline, no JVD Chest: no-tender to palpation, no lesions Musculoskeletal: normal structure, normal tone, ROM grossly normal Neurological: no focal deficit, normal sensation Skin: no rash/lesions, good turgor, no jaundice Heme/Lymphatic: no unusual bruising or bleeding Psychiatric: normal mood and affect, good judgment and insight, intact recent and remote memory FMR H&P: Results - Labs Result Diagrams: 04/11/20 13:07 04/11/20 13:07 Lab results: WBC 13.0 thou/uL (4.8-10.8) H 04/11/20 13:07 Hgb 16.8 g/dL (14.0-18.0) 04/11/20 13:07 Hct 48.8 % (42.0-52.0) 04/11/20 13:07 MCV 95.3 fL (78.0-98.0) 04/11/20 13:07 Plt Count 191 thou/uL (130-400) 04/11/20 13:07 Neutrophils % 56.2 % (42.0-75.0) 04/11/20 13:07 Sodium 135 mmol/L (136-145) L 04/11/20 13:07 Potassium 4.3 mmol/L (3.5-5.1) 04/11/20 13:07 Chloride 106 mmol/L (98-107) 04/11/20 13:07 Carbon Dioxide 22 mmol/L (23-31) L 04/11/20 13:07 BUN 18 mg/dL (8.4-25.7) 04/11/20 13:07 Creatinine 1.01 mg/dL (0.7-1.3) 04/11/20 13:07 Glucose 216 mg/dL (83-110) H 04/11/20 13:07 Calcium 9.4 mg/dL (7.8-10.44) 04/11/20 13:07 Total Bilirubin 0.4 mg/dL (0.2-1.2) 04/11/20 13:07 AST 28 U/L (5-34) 04/11/20 13:07 ALT 26 U/L (8-55) 04/11/20 13:07 Alkaline Phosphatase 160 U/L (40-110) H 04/11/20 13:07 Creatine Kinase 329 U/L (30-200) H 04/11/20 13:07 Serum Total Protein 8.1 g/dL (5.8-8.1) 04/11/20 13:07 Albumin 4.2 g/dL (3.4-4.8) 04/11/20 13:07 - EKG Interpretation EKG: NSR with no ST changes - Radiology Interpretation Chest x-ray Status: image reviewed by me, report reviewed by me Additional comment: no acute abnormalities FMR H&P: A/P - Problem List (1) Chest pain Current Visit: Yes Status: Acute Code(s): R07.9 - CHEST PAIN, UNSPECIFIED (2) Tobacco abuse Current Visit: No Status: Acute Code(s): Z72.0 - TOBACCO USE (3) CAD (coronary artery disease) Current Visit: No Status: Chronic Code(s): I25.10 - ATHSCL HEART DISEASE OF [place] CORONARY ARTERY W/O ANG PCTRS (4) COPD (chronic obstructive pulmonary disease) Current Visit: No Status: Chronic (5) Diabetes mellitus Current Visit: No Status: Chronic Code(s): E11.9 - TYPE 2 DIABETES MELLITUS WITHOUT COMPLICATIONS (6) GERD (gastroesophageal reflux disease) Current Visit: No Status: Chronic Code(s): K21.9 - GASTRO-ESOPHAGEAL REFLUX DISEASE WITHOUT ESOPHAGITIS (7) HLD (hyperlipidemia) Current Visit: No Status: Chronic Code(s): E78.5 - HYPERLIPIDEMIA, UNSPECIFIED (8) HTN (hypertension) Current Visit: No Status: Chronic Code(s): I10 - ESSENTIAL (PRIMARY) HYPERTENSION - Plan Short Stay Summary Pt is a 69 yo male who presents for CP w/ extensive cardiac hx who was to be admitted from the emergency department but decided to leave AMA due to family circumstances. His chest pain was not present during my examination, vitals were stable, and initial trop was negative. He was a candidate for a stress test. A stress test 1 year was negative for reversible CAD. He does have extensive CAD w/ hx of LAD stent placement. He was instructed to follow up with the [facility] on Tuesday to discuss outpt stress test. We will also have our clinic call pt on Tuesday for follow up. He was given return precautions for anginal, NV-like symptoms. He has ASA, nitro SL at home. Pt understood and agreed with this plan. He signed AMA paperwork. Mango Gooden, DO 04/11/20 1600 FMR H&P: Upper Level - Plan Date/Time: 04/11/20 2007 I, [], have evaluated this patient and agree with findings/plan as outlined by merchandising internship resident. Pertinent changes/additions are listed here. Addendum - Attending - Attending Attestation Date/Time: 04/11/20 [id number] I personally evaluated the patient and discussed the management with Dr. Gooden. I agree with the History, Examination, Assessment and Plan documented above with any addition or exceptions noted below. Patient was admitted for CP r/o. I was addressing several critically ill patients and the patient elected to leave AMA before I could evaluate him.
== END 2020-04-11 16:22 | disposition left against medical advice (07) ==
LOC: ERS 12:49
DX: I24.9 Acute ischemic heart disease, unspecified (principal); I10 Essential (primary) hypertension; I25.10 Atherosclerotic heart disease of native coronary artery without angina pectoris; I25.2 Old myocardial infarction; E78.5 Hyperlipidemia, unspecified; E11.9 Type 2 diabetes mellitus without complications; F17.210 Nicotine dependence, cigarettes, uncomplicated; Z79.4 Long term (current) use of insulin; Z79.899 Other long term (current) drug therapy; Z79.82 Long term (current) use of aspirin
CPT/HCPCS: 71045; 80053; 82550; 84484; 85025; 93005; 94760

== ENCOUNTER 2020-08-11 11:47 | Emergency (ER) | payer MEDICARE ==
[2020-08-11 12:15] LABS: #Basophils 0.1 thou/uL (0.0-0.2); #Eosinphils 0.2 thou/uL (0.0-0.7); #Lymphocytes 4.6 thou/uL (1.20-3.40); #Monocytes 0.7 thou/uL (0.11-0.59); #Neutrophils 7.4 thou/uL (1.40-6.50); %Basophils 0.8 % (0.0-1.0); %Eosinophils 1.3 % (0.0-10.0); %Lymphocytes 35.2 % (21.0-51.0); %Monocytes 5.3 % (0.0-10.0); %Neutrophils 57.4 % (42.0-75.0); Hemoglobin 17.9 g/dL (14.0-18.0); Mean Corpuscular HGB CONC 33.7 g/dL (32.0-36.0); Mean Corpuscular Hemoglobin 32.9 pg (27.0-31.0); Mean Corpuscular Volume 97.7 fL (78.0-98.0); Mean Platelet Volume 7.3 fL (7.4-10.4); Platelet Count 213 thou/uL (130-400); RBC Distribution Width 12.6 % (11.5-14.5); Red Blood Cell (RBC) Count 5.44 mill/uL (4.70-6.10); White Blood Cell (WBC) Count 12.9 thou/uL (4.8-10.8)
[2020-08-11 12:41] LABS: ALT (SGPT) 26 U/L (8-55); AST (SGOT) 24 U/L (5-34); Albumin 4.4 g/dL (3.4-4.8); Alkaline Phosphatase 125 U/L (40-110); Anion Gap 14 mmol/L (10-20); BUN (Urea Nitrogen) 17 mg/dL (8.4-25.7); Bilirubin, Total 0.3 mg/dL (0.2-1.2); CK (CPK) 215 U/L (30-200); Calc. Creatinine Clearance 0 mL/min (70-130); Calcium 9.7 mg/dL (7.8-10.44); Carbon Dioxide 20 mmol/L (23-31); Chloride 106 mmol/L (98-107); Estimated GFR-MDRD 83; Globulin 3.6 g/dL (2.4-3.5); Glucose 144 mg/dL (83-110); Potassium 4.5 mmol/L (3.5-5.1); Sodium 135 mmol/L (136-145)
--- NOTE | 2020-08-11 13:05 | RAD ---
CHEST 1 VIEW PORTABLE: HISTORY: Dyspnea. Here is also chest pain and dizziness. COMPARISON: 04/11/2020. FINDINGS: Heart size is within normal limits. The lungs are clear. No confluent pneumonia, overt edema, or pl eural effusion. IMPRESSION: No significant acute intrathoracic disease. POS: RRE
[2020-08-11 15:17] LABS: Troponin I Less than 0.010 ng/mL (< 0.028)
== END 2020-08-11 15:30 | disposition home or self-care (01) ==
LOC: ERS 11:47
DX: R07.9 Chest pain, unspecified (principal); I10 Essential (primary) hypertension; E11.9 Type 2 diabetes mellitus without complications; E78.5 Hyperlipidemia, unspecified; I25.10 Atherosclerotic heart disease of native coronary artery without angina pectoris; I25.2 Old myocardial infarction; F17.210 Nicotine dependence, cigarettes, uncomplicated; Z79.82 Long term (current) use of aspirin; Z79.4 Long term (current) use of insulin; Z79.899 Other long term (current) drug therapy
CPT/HCPCS: 36415; 71045; 80053; 82550; 84484; 85025; 93005

== ENCOUNTER 2020-11-30 19:58 | Emergency (ER) | payer MEDICARE ==
[2020-11-30 20:26] LABS: #Basophils 0.2 thou/uL (0.0-0.2); #Eosinphils 0.2 thou/uL (0.0-0.7); #Lymphocytes 4.5 thou/uL (1.20-3.40); #Monocytes 0.8 thou/uL (0.11-0.59); #Neutrophils 6.6 thou/uL (1.40-6.50); %Basophils 1.4 % (0.0-1.0); %Eosinophils 1.8 % (0.0-10.0); %Lymphocytes 36.6 % (21.0-51.0); %Monocytes 6.9 % (0.0-10.0); %Neutrophils 53.3 % (42.0-75.0); Mean Corpuscular Hemoglobin 31.9 pg (27.0-31.0); Mean Corpuscular Volume 96.8 fL (78.0-98.0); Mean Platelet Volume 7.1 fL (7.4-10.4); Platelet Count 212 thou/uL (130-400); RBC Distribution Width 12.6 % (11.5-14.5); Red Blood Cell (RBC) Count 5.34 mill/uL (4.70-6.10); White Blood Cell (WBC) Count 12.3 thou/uL (4.8-10.8)
[2020-11-30 20:46] LABS: ALT (SGPT) 22 U/L (8-55); AST (SGOT) 20 U/L (5-34); Albumin 4.1 g/dL (3.4-4.8); Alkaline Phosphatase 142 U/L (40-110); Anion Gap 15 mmol/L (10-20); BUN (Urea Nitrogen) 27 mg/dL (8.4-25.7); Bilirubin, Total 0.2 mg/dL (0.2-1.2); CK (CPK) 165 U/L (30-200); Calc. Creatinine Clearance 0 mL/min (70-130); Calcium 9.1 mg/dL (7.8-10.44); Carbon Dioxide 22 mmol/L (23-31); Chloride 103 mmol/L (98-107); Globulin 3.6 g/dL (2.4-3.5); Glucose 317 mg/dL (83-110); Potassium 4.2 mmol/L (3.5-5.1); Protein, Total 7.7 g/dL (5.8-8.1); Sodium 136 mmol/L (136-145)
--- NOTE | 2020-11-30 21:53 | RAD ---
PORTABLE CHEST: Date: 11-30-2020 PROVIDED CLINICAL HISTORY: Chest pain and headache FINDINGS: Comparison is made with the study dated 08-11-2020. Cardiac and mediastinal silhouette is within normal limits. No focal consolidation, pleural fluid, or pneumothorax apparent. IMPRESSION: No evidence for acute cardiopulmonary process. POS: YU
[2020-12-01 01:36] LABS: SARS-CoV-2 PCR by NAA Not Detected (NotDetected)
== END 2020-11-30 21:59 | disposition home or self-care (01) ==
LOC: ERS 19:58
DX: E11.65 Type 2 diabetes mellitus with hyperglycemia (principal); I25.10 Atherosclerotic heart disease of native coronary artery without angina pectoris; I25.2 Old myocardial infarction; I10 Essential (primary) hypertension; E78.5 Hyperlipidemia, unspecified; F17.210 Nicotine dependence, cigarettes, uncomplicated; Z20.822 Contact with and (suspected) exposure to COVID-19; Z79.899 Other long term (current) drug therapy; Z79.4 Long term (current) use of insulin
CPT/HCPCS: 71045; 80053; 82550; 84484; 85025; 93005; 99284; U0003; U0005; 87635

== ENCOUNTER 2021-02-16 16:23 | Emergency (ER) | payer MEDICARE | END 2021-02-16 18:28 | disposition home or self-care (01) | LOC: ERS 16:23 | DX: L01.00 Impetigo, unspecified (principal); T69.8XXA Other specified effects of reduced temperature, initial encounter; E11.9 Type 2 diabetes mellitus without complications; I10 Essential (primary) hypertension; E78.5 Hyperlipidemia, unspecified; F17.210 Nicotine dependence, cigarettes, uncomplicated; Z79.4 Long term (current) use of insulin; Z79.899 Other long term (current) drug therapy | CPT/HCPCS: 99282 ==

== ENCOUNTER 2021-10-12 10:23 | Emergency (ER) | payer MEDICARE, MEDICAID ==
[2021-10-12 11:35] LABS: #Basophils 0.1 thou/uL (0.0-0.2); #Eosinphils 0.2 thou/uL (0.0-0.7); #Lymphocytes 3.9 thou/uL (1.20-3.40); #Monocytes 0.7 thou/uL (0.11-0.59); #Neutrophils 6.3 thou/uL (1.40-6.50); %Eosinophils 1.7 % (0.0-10.0); %Lymphocytes 34.8 % (21.0-51.0); %Monocytes 6.1 % (0.0-10.0); %Neutrophils 56.4 % (42.0-75.0); Hemoglobin 17.3 g/dL (14.0-18.0); Mean Corpuscular HGB CONC 33.2 g/dL (32.0-36.0); Mean Corpuscular Hemoglobin 33.1 pg (27.0-31.0); Mean Corpuscular Volume 99.6 fL (78.0-98.0); Mean Platelet Volume 6.9 fL (7.4-10.4); Platelet Count 196 thou/uL (130-400); RBC Distribution Width 12.7 % (11.5-14.5); Red Blood Cell (RBC) Count 5.24 mill/uL (4.70-6.10); White Blood Cell (WBC) Count 11.2 thou/uL (4.8-10.8)
[2021-10-12 11:53] LABS: ALT (SGPT) 27 U/L (8-55); AST (SGOT) 25 U/L (5-34); Albumin 4.3 g/dL (3.4-4.8); Alkaline Phosphatase 96 U/L (40-110); Anion Gap 13 mmol/L (10-20); BUN (Urea Nitrogen) 20 mg/dL (8.4-25.7); Bilirubin, Total 0.5 mg/dL (0.2-1.2); Calc. Creatinine Clearance 0 mL/min (70-130); Calcium 9.5 mg/dL (7.8-10.44); Carbon Dioxide 22 mmol/L (23-31); Chloride 106 mmol/L (98-107); Globulin 3.5 g/dL (2.4-3.5); Glucose 93 mg/dL (83-110); Potassium 4.2 mmol/L (3.5-5.1); Protein, Total 7.8 g/dL (5.8-8.1); Sodium 137 mmol/L (136-145)
== END 2021-10-12 16:14 | disposition left against medical advice (07) ==
LOC: ERS 10:23
DX: R55 Syncope and collapse (principal); I11.0 Hypertensive heart disease with heart failure; I50.9 Heart failure, unspecified; E11.9 Type 2 diabetes mellitus without complications; I25.10 Atherosclerotic heart disease of native coronary artery without angina pectoris; J44.9 Chronic obstructive pulmonary disease, unspecified; E78.5 Hyperlipidemia, unspecified; I25.2 Old myocardial infarction; F17.210 Nicotine dependence, cigarettes, uncomplicated; Z79.02 Long term (current) use of antithrombotics/antiplatelets; Z79.84 Long term (current) use of oral hypoglycemic drugs
CPT/HCPCS: 36415; 71045; 80053; 83880; 84484; 85025; 93005

== ENCOUNTER 2022-07-20 06:09 | Observation (INO) | payer OTHER, MEDICAID ==
[2022-07-20] MEDS ORDERED: Nitroglycerin 2% Ointment 1 INCH/1 GM Packet ONE (06:53)
[2022-07-20] MEDS ORDERED: Aspirin Chewable 81 MG TAB ONE (06:53)
[2022-07-20 07:05] LABS: #Basophils 0.1 thou/uL (0.0-0.2); #Eosinphils 0.2 thou/uL (0.0-0.7); #Lymphocytes 3.2 thou/uL (1.20-3.40); #Monocytes 0.7 thou/uL (0.11-0.59); #Neutrophils 6.4 thou/uL (1.40-6.50); %Basophils 0.9 % (0.0-1.0); %Monocytes 6.9 % (0.0-10.0); %Neutrophils 60.2 % (42.0-75.0); Hemoglobin 17.3 g/dL (14.0-18.0); Mean Corpuscular HGB CONC 35.1 g/dL (32.0-36.0); Mean Corpuscular Hemoglobin 34.8 pg (27.0-31.0); Mean Corpuscular Volume 99.3 fL (78.0-98.0); Mean Platelet Volume 7.3 fL (7.4-10.4); Platelet Count 183 thou/uL (130-400); RBC Distribution Width 12.3 % (11.5-14.5); Red Blood Cell (RBC) Count 4.98 mill/uL (4.70-6.10); White Blood Cell (WBC) Count 10.6 thou/uL (4.8-10.8)
[2022-07-20 07:27] LABS: ALT (SGPT) 32 U/L (8-55); AST (SGOT) 21 U/L (5-34); Albumin 4.4 g/dL (3.4-4.8); Alkaline Phosphatase 146 U/L (40-110); Anion Gap 15 mmol/L (10-20); BUN (Urea Nitrogen) 19 mg/dL (8.4-25.7); Bilirubin, Total 0.4 mg/dL (0.2-1.2); CK (CPK) 197 U/L (30-200); Calc. Creatinine Clearance 0 mL/min (70-130); Carbon Dioxide 23 mmol/L (23-31); Chloride 101 mmol/L (98-107); Estimated GFR 69; Globulin 3.7 g/dL (2.4-3.5); Glucose 348 mg/dL (83-110); Lipase 512 U/L (8-78); Protein, Total 8.1 g/dL (5.8-8.1); Sodium 134 mmol/L (136-145)
[2022-07-20 07:54] LABS: Bilirubin Negative (Negative); Blood, Urine Negative (Negative); Clarity Clear (Clear); Glucose, Urine (Dipstick) Greater than 1000 mg/dL (Negative); Ketone, Urine Negative (Negative); Leukocyte Negative Leu/uL (Negative); Nitrite Negative (Negative); Protein, Urine (Dipstick) Negative (Neg-Trace); Specific Gravity, Urine 1.011 (1.002-1.036); Urobilinogen Normal mg/dL (Less than 2); pH, Urine 6.5 (5.0-9.0)
[2022-07-20] MEDS ORDERED: Ondansetron PF 4 MG/2 ML Vial IVP PRN (10:22)
[2022-07-20] MEDS ORDERED: Acetaminophen 325 MG TAB PO PRN (10:22)
[2022-07-20] MEDS ORDERED: Ondansetron ODT 4 MG TAB PO PRN (10:22)
[2022-07-20 10:47] LABS: Troponin I Less than 0.010 ng/mL (< 0.028)
[2022-07-20] MEDS ORDERED: HumaLOG 300 UNITS/3 ML VIAL SC PRN ×2 (12:54)
[2022-07-20] MEDS ORDERED: Dextrose 50% Abboject 50 ML SYRINGE SLOW IVP PRN (12:54)
[2022-07-20] MEDS ORDERED: Dextrose 5% in Water 1,000 ML IV PRN (12:54)
[2022-07-20] MEDS: Lactated Ringer's 1,000 ML IV SCH ×2 (13:30→21:52)
[2022-07-20 13:34] VITALS: BMI 32.3
[2022-07-20] MEDS ORDERED: Albuterol Sulfate 2.5 mg/3 ml Neb NEB PRN (13:35)
[2022-07-20 13:51] LABS: Troponin I Less than 0.010 ng/mL (< 0.028)
[2022-07-20] MEDS: Gabapentin 100 MG CAP PO SCH ×2 (16:14→21:53)
[2022-07-20] MEDS: Icosapent Ethyl 1 GM CAPSULE PO SCH (16:14)
[2022-07-20] MEDS ORDERED: Atorvastatin Calcium 40 MG TAB PO SCH (21:00)
[2022-07-20] MEDS: Insulin Glargine 30 UNITS/0.3 ML VIAL SC SCH (21:56)
[2022-07-21 04:51] LABS: #Basophils 0.1 thou/uL (0.0-0.2); #Eosinphils 0.3 thou/uL (0.0-0.7); #Monocytes 0.7 thou/uL (0.11-0.59); #Neutrophils 6.1 thou/uL (1.40-6.50); %Basophils 0.7 % (0.0-1.0); %Eosinophils 2.3 % (0.0-10.0); %Lymphocytes 35.6 % (21.0-51.0); %Monocytes 6.3 % (0.0-10.0); %Neutrophils 55.1 % (42.0-75.0); Hemoglobin 16.8 g/dL (14.0-18.0); Mean Corpuscular Hemoglobin 33.7 pg (27.0-31.0); Mean Corpuscular Volume 99.1 fL (78.0-98.0); Mean Platelet Volume 7.3 fL (7.4-10.4); Platelet Count 188 thou/uL (130-400); RBC Distribution Width 12.2 % (11.5-14.5); Red Blood Cell (RBC) Count 4.99 mill/uL (4.70-6.10); White Blood Cell (WBC) Count 11.1 thou/uL (4.8-10.8)
[2022-07-21 05:13] LABS: ALT (SGPT) 30 U/L (8-55); AST (SGOT) 20 U/L (5-34); Alkaline Phosphatase 107 U/L (40-110); Anion Gap 13 mmol/L (10-20); BUN (Urea Nitrogen) 18 mg/dL (8.4-25.7); Bilirubin, Total 0.6 mg/dL (0.2-1.2); Calc. Creatinine Clearance 75 mL/min (70-130); Calcium 9.5 mg/dL (7.8-10.44); Carbon Dioxide 22 mmol/L (23-31); Chloride 105 mmol/L (98-107); Estimated GFR 85; Globulin 3.4 g/dL (2.4-3.5); Glucose 235 mg/dL (83-110); Potassium 4.6 mmol/L (3.5-5.1); Protein, Total 7.4 g/dL (5.8-8.1); Sodium 135 mmol/L (136-145)
[2022-07-21] MEDS: Lactated Ringer's 1,000 ML IV SCH ×2 (05:56→13:39)
[2022-07-21] MEDS ORDERED: Lisinopril 20 MG TAB PO SCH (09:00)
[2022-07-21] MEDS ORDERED: Aspirin 81 mg Enteric Coated Tablet PO SCH (09:00)
[2022-07-21] MEDS ORDERED: Enoxaparin Sodium 40 MG/0.4 ML SYRINGE SC SCH (09:00)
[2022-07-21] MEDS ORDERED: Clopidogrel Bisulfate 75 MG TAB PO SCH (09:00)
[2022-07-21 09:34] LABS: Hemoglobin A1c 10.9 % (4.0-6.0)
[2022-07-21 09:42] LABS: Cardiac Risk 3.2 (Less than 4.5)
[2022-07-21] MEDS ORDERED: Insulin Glargine 30 UNITS/0.3 ML VIAL SC SCH ×3 (11:14→21:00)
[2022-07-21] MEDS ORDERED: ADENOSINE 60 MG/20 ML VIAL ONE (13:00)
[2022-07-21] MEDS: Icosapent Ethyl 1 GM CAPSULE PO SCH (13:37)
[2022-07-21] MEDS: Gabapentin 100 MG CAP PO SCH ×2 (13:38)
[2022-07-21] MEDS: Insulin Glargine 30 UNITS/0.3 ML VIAL SC SCH (13:42)
[2022-07-21 13:58] VITALS: BP 143/63; TEMP 97.3
[2022-07-21 21:43] LABS: Campy jejuni + coli by PCR Negative (Negative); STEC Shiga Toxin 1+2 Negative (Negative); Salmonella spp. by PCR Negative (Negative); Shigella spp + EIEC by PCR Negative (Negative)
== END 2022-07-21 16:01 | disposition home or self-care (01) ==
LOC: ERS 06:09 → ERHOLD 10:20 → 2NO 13:10
PROVIDERS: ADMIT Family Medicine; ATTEND Family Medicine
DX: I25.118 Atherosclerotic heart disease of native coronary artery with other forms of angina pectoris (principal); I25.2 Old myocardial infarction; E86.0 Dehydration; R55 Syncope and collapse; R19.7 Diarrhea, unspecified; E11.9 Type 2 diabetes mellitus without complications; I10 Essential (primary) hypertension; E78.5 Hyperlipidemia, unspecified; K21.9 Gastro-esophageal reflux disease without esophagitis; F17.210 Nicotine dependence, cigarettes, uncomplicated; I44.0 Atrioventricular block, first degree; Z79.02 Long term (current) use of antithrombotics/antiplatelets; Z79.4 Long term (current) use of insulin; Z79.82 Long term (current) use of aspirin; Z79.84 Long term (current) use of oral hypoglycemic drugs; Z79.899 Other long term (current) drug therapy; Z20.822 Contact with and (suspected) exposure to COVID-19
CPT/HCPCS: 71045; 78452; 80053; 80061; 81003; 82550; 82962 ×2; 83036; 83690; 84484 ×2; 85025; 87505; 93005; 93017; 93880; 99285; A9500; U0003; U0005; 36415; 36416; 84443; 96360; 96361; G0378; J0153; J1815; J7120

== ENCOUNTER 2022-10-04 18:46 | Emergency (ER) | payer OTHER, MEDICAID ==
[2022-10-04 19:28] LABS: #Basophils 0.1 thou/uL (0.0-0.2); #Eosinphils 0.3 thou/uL (0.0-0.7); #Lymphocytes 4.3 thou/uL (1.20-3.40); #Monocytes 0.7 thou/uL (0.11-0.59); #Neutrophils 7.3 thou/uL (1.40-6.50); %Basophils 0.6 % (0.0-1.0); %Eosinophils 2.1 % (0.0-10.0); %Lymphocytes 33.8 % (21.0-51.0); %Monocytes 5.5 % (0.0-10.0); Hemoglobin 16.3 g/dL (14.0-18.0); Mean Corpuscular HGB CONC 33.4 g/dL (32.0-36.0); Mean Corpuscular Hemoglobin 33.4 pg (27.0-31.0); Mean Corpuscular Volume 99.9 fl (78.0-98.0); Mean Platelet Volume 7.8 fL (7.4-10.4); Platelet Count 189 10x3/uL (130-400); RBC Distribution Width 12.3 % (11.5-14.5); Red Blood Cell (RBC) Count 4.87 mill/uL (4.70-6.10); White Blood Cell (WBC) Count 12.6 10x3/uL (4.8-10.8)
[2022-10-04 19:49] LABS: ALT (SGPT) 33 U/L (8-55); AST (SGOT) 25 U/L (5-34); Albumin 3.8 g/dL (3.4-4.8); Alkaline Phosphatase 132 U/L (40-110); Anion Gap 15 mmol/L (10-20); BUN (Urea Nitrogen) 22 mg/dL (8.4-25.7); Bilirubin, Total 0.3 mg/dL (0.2-1.2); Calc. Creatinine Clearance 0 mL/min (70-130); Calcium 9.2 mg/dL (7.8-10.44); Carbon Dioxide 21 mmol/L (23-31); Chloride 103 mmol/L (98-107); Estimated GFR 63; Globulin 3.9 g/dL (2.4-3.5); Glucose 344 mg/dL (83-110); Potassium 4.8 mmol/L (3.5-5.1); Protein, Total 7.7 g/dL (5.8-8.1); Sodium 134 mmol/L (136-145)
== END 2022-10-04 20:41 | disposition left against medical advice (07) ==
LOC: ERS 18:46
DX: Z53.21 Procedure and treatment not carried out due to patient leaving prior to being seen by health care provider (principal)
CPT/HCPCS: 36415; 71045; 80053; 84484; 85025; 93005

== ENCOUNTER 2022-11-25 10:02 | Emergency (ER) | payer OTHER, MEDICAID ==
[2022-11-25 11:19] LABS: #Eosinphils 0.1 thou/uL (0.0-0.7); #Lymphocytes 3.1 thou/uL (1.20-3.40); #Monocytes 0.7 thou/uL (0.11-0.59); #Neutrophils 6.9 thou/uL (1.40-6.50); %Basophils 0.2 % (0.0-1.0); %Eosinophils 1.2 % (0.0-10.0); %Lymphocytes 28.6 % (21.0-51.0); %Monocytes 6.2 % (0.0-10.0); %Neutrophils 63.7 % (42.0-75.0); Hemoglobin 16.8 g/dL (14.0-18.0); Mean Corpuscular HGB CONC 33.8 g/dL (32.0-36.0); Mean Corpuscular Hemoglobin 33.1 pg (27.0-31.0); Mean Platelet Volume 7.2 fL (7.4-10.4); Platelet Count 183 10x3/uL (130-400); RBC Distribution Width 12.5 % (11.5-14.5); Red Blood Cell (RBC) Count 5.06 mill/uL (4.70-6.10); White Blood Cell (WBC) Count 10.9 10x3/uL (4.8-10.8)
[2022-11-25 11:46] LABS: Bilirubin Negative (Negative); Blood, Urine Negative (Negative); Clarity Clear (Clear); Glucose, Urine (Dipstick) 300 mg/dL (Negative); Ketone, Urine Negative (Negative); Leukocyte Negative Leu/uL (Negative); Nitrite Negative (Negative); Protein, Urine (Dipstick) Negative (Neg-Trace); Specific Gravity, Urine 1.009 (1.002-1.036); Urobilinogen Normal mg/dL (Less than 2)
[2022-11-25 11:48] LABS: ALT (SGPT) 39 U/L (8-55); AST (SGOT) 25 U/L (5-34); Albumin 4.1 g/dL (3.4-4.8); Alkaline Phosphatase 142 U/L (40-110); Anion Gap 15 mmol/L (10-20); BUN (Urea Nitrogen) 15 mg/dL (8.4-25.7); Bilirubin, Total 0.4 mg/dL (0.2-1.2); Calc. Creatinine Clearance 0 mL/min (70-130); Calcium 9.6 mg/dL (7.8-10.44); Carbon Dioxide 20 mmol/L (23-31); Chloride 103 mmol/L (98-107); Estimated GFR 83; Globulin 3.7 g/dL (2.4-3.5); Glucose 243 mg/dL (83-110); Lipase 48 U/L (8-78); Potassium 4.9 mmol/L (3.5-5.1); Protein, Total 7.8 g/dL (5.8-8.1); Sodium 133 mmol/L (136-145)
[2022-11-25] MEDS ORDERED: Ketorolac Tromethamine 30 MG/ML VIAL ONE (14:45)
[2022-11-25] MEDS ORDERED: HYDROcodone/Acetaminophen 5/325 mg Tablet ONE (14:45)
== END 2022-11-25 14:50 | disposition home or self-care (01) ==
LOC: ERS 10:02
DX: S33.5XXA Sprain of ligaments of lumbar spine, initial encounter (principal); I10 Essential (primary) hypertension
CPT/HCPCS: 36415; 71045; 72100; 80053; 81003; 83690; 84484; 85025; 93005; 96372; J1885

== ENCOUNTER 2023-05-07 16:37 | Observation (INO) | payer OTHER, MEDICAID ==
[2023-05-07 17:25] LABS: #Basophils 0.1 thou/uL (0.0-0.2); #Eosinphils 0.2 thou/uL (0.0-0.7); #Monocytes 0.8 thou/uL (0.11-0.59); #Neutrophils 7.9 thou/uL (1.40-6.50); %Basophils 0.6 % (0.0-1.0); %Eosinophils 1.6 % (0.0-10.0); %Lymphocytes 25.9 % (21.0-51.0); %Monocytes 6.8 % (0.0-10.0); %Neutrophils 64.8 % (42.0-75.0); Hemoglobin 15.4 g/dL (14.0-18.0); Mean Corpuscular HGB CONC 34.1 g/dL (32.0-36.0); Mean Corpuscular Hemoglobin 32.2 pg (27.0-31.0); Mean Corpuscular Volume 94.2 fl (78.0-98.0); Mean Platelet Volume 9.5 fL (7.4-10.4); Platelet Count 181 10x3/uL (130-400); RBC Distribution Width 13.3 % (11.5-14.5); Red Blood Cell (RBC) Count 4.79 mill/uL (4.70-6.10); White Blood Cell (WBC) Count 12.2 10x3/uL (4.8-10.8)
[2023-05-07 17:50] LABS: ALT (SGPT) 36 U/L (8-55); AST (SGOT) 23 U/L (5-34); Albumin 3.9 g/dL (3.4-4.8); Alkaline Phosphatase 115 U/L (40-110); Anion Gap 16 mmol/L (10-20); BUN (Urea Nitrogen) 22 mg/dL (8.4-25.7); Bilirubin, Total 0.4 mg/dL (0.2-1.2); CK (CPK) 165 U/L (30-200); Calc. Creatinine Clearance 0 mL/min (70-130); Calcium 9.3 mg/dL (7.8-10.44); Carbon Dioxide 19 mmol/L (23-31); Chloride 108 mmol/L (98-107); Estimated GFR 68; Globulin 3.4 g/dL (2.4-3.5); Glucose 353 mg/dL (83-110); Potassium 4.3 mmol/L (3.5-5.1); Protein, Total 7.3 g/dL (5.8-8.1); Sodium 139 mmol/L (136-145)
[2023-05-07 18:02] LABS: Bacteria/HPF None Seen HPF (None Seen); Bilirubin Negative (Negative); Blood, Urine Negative (Negative); CAUTI Indications for Culture Dysuria,urgency,freq; Clarity Clear (Clear); Glucose, Urine (Dipstick) Greater than 1000 mg/dL (Negative); Ketone, Urine Negative (Negative); Leukocyte Negative Leu/uL (Negative); Nitrite Negative (Negative); Protein, Urine (Dipstick) Negative (Neg-Trace); RBC/HPF 0-3 HPF (0-3); Specific Gravity, Urine 1.017 (1.002-1.036); Squamous Epithelial 0-3 HPF (0-3); Urobilinogen Normal mg/dL (Less than 2); WBC/HPF 0-3 HPF (0-3)
[2023-05-07 18:04] LABS: Urine Culture Reflex No No
[2023-05-07 18:11] LABS: CKMB 7.8 ng/mL (0-6.6)
[2023-05-07] MEDS ORDERED: Glucagon 1 MG/ML KIT IM PRN (19:12)
[2023-05-07] MEDS ORDERED: Dextrose 5% in Water 1,000 ML IV PRN (19:12)
[2023-05-07] MEDS ORDERED: Dextrose 50% Abboject 50 ML SYRINGE SLOW IVP PRN (19:12)
[2023-05-07] MEDS ORDERED: HumaLOG 300 UNITS/3 ML VIAL SC PRN ×2 (19:12)
[2023-05-07] MEDS ORDERED: Acetaminophen 325 MG TAB PO PRN (19:12)
[2023-05-07] MEDS ORDERED: Lactated Ringer's 1,000 ML IV SCH (19:30)
[2023-05-07 19:41] LABS: Acetaminophen Less than 10 mcg/mL (10.0-30.0); Alcohol Less than 10.0 mg/dL (Less than 10); Salicylate Less than 8.0 mg/dL (15.0-30.0)
[2023-05-07 20:30] LABS: Hemoglobin A1c 11.1 % (4.0-6.0)
[2023-05-07 20:34] LABS: Magnesium 1.8 mg/dL (1.6-2.6)
[2023-05-07 20:40] LABS: Troponin I Less than 0.010 ng/mL (< 0.028)
[2023-05-07 21:52] VITALS: BMI 29.0
[2023-05-08 00:04] LABS: Troponin I 0.014 ng/mL (< 0.028)
[2023-05-08] MEDS ORDERED: Atorvastatin Calcium 40 MG TAB PO SCH ×2 (00:30→21:00)
[2023-05-08] MEDS ORDERED: Aspirin Chewable 81 MG TAB PO SCH ×2 (00:30→09:00)
[2023-05-08 02:32] LABS: Amphetamine Not Detected (NotDetected); Barbiturates Screen Not Detected (NotDetected); Benzodiazepine Screen Not Detected (NotDetected); Cocaine Metabolite Screen Not Detected (NotDetected); Methadone Not Detected (NotDetected); Methamphetamine Not Detected (NotDetected); Opiate Screen Not Detected (NotDetected); Oxycodone Screen Not Detected (NotDetected); Phencyclidine (PCP) Not Detected (NotDetected); THC/Cannabinoid Screen Not Detected (NotDetected); Tricyclic Screen Not Detected (NotDetected)
[2023-05-08 05:31] LABS: #Basophils 0.1 thou/uL (0.0-0.2); #Eosinphils 0.2 thou/uL (0.0-0.7); #Monocytes 0.7 thou/uL (0.11-0.59); #Neutrophils 6.8 thou/uL (1.40-6.50); %Basophils 0.5 % (0.0-1.0); %Eosinophils 1.9 % (0.0-10.0); %Lymphocytes 30.9 % (21.0-51.0); %Monocytes 5.9 % (0.0-10.0); %Neutrophils 60.4 % (42.0-75.0); Hemoglobin 15.2 g/dL (14.0-18.0); Mean Corpuscular HGB CONC 33.6 g/dL (32.0-36.0); Mean Corpuscular Hemoglobin 31.8 pg (27.0-31.0); Mean Corpuscular Volume 94.6 fl (78.0-98.0); Mean Platelet Volume 9.6 fL (7.4-10.4); Platelet Count 175 10x3/uL (130-400); RBC Distribution Width 13.3 % (11.5-14.5); Red Blood Cell (RBC) Count 4.78 mill/uL (4.70-6.10); White Blood Cell (WBC) Count 11.2 10x3/uL (4.8-10.8)
[2023-05-08 05:58] LABS: ALT (SGPT) 33 U/L (8-55); AST (SGOT) 21 U/L (5-34); Albumin 3.7 g/dL (3.4-4.8); Alkaline Phosphatase 86 U/L (40-110); Anion Gap 11 mmol/L (10-20); BUN (Urea Nitrogen) 19 mg/dL (8.4-25.7); Bilirubin, Total 0.6 mg/dL (0.2-1.2); Calc. Creatinine Clearance 83 mL/min (70-130); Calcium 8.9 mg/dL (7.8-10.44); Carbon Dioxide 20 mmol/L (23-31); Cardiac Risk 3.6 (Less than 4.5); Chloride 110 mmol/L (98-107); Cholesterol 87 mg/dl (< 200 Desired); Estimated GFR 91; Glucose 225 mg/dL (83-110); HDL Cholesterol 24 mg/dL (>60 Neg Risk); LDL Cholesterol, Calculated 34 mg/dL; Potassium 4.2 mmol/L (3.5-5.1); Protein, Total 6.7 g/dL (5.8-8.1); Sodium 137 mmol/L (136-145); Triglycerides 146 mg/dL (Less than 150)
[2023-05-08] MEDS ORDERED: ADENOSINE 60 MG/20 ML SDV ONE (11:02)
[2023-05-08] MEDS ORDERED: Albuterol 200 PUFF (6.7GM INHALER) INH PRN (13:10)
[2023-05-08] MEDS ORDERED: Insulin Glargine 30 UNITS/0.3 ML VIAL SC SCH ×2 (13:15→21:00)
[2023-05-08 16:34] VITALS: BP 142/69; TEMP 98.2
[2023-05-08] MEDS ORDERED: Icosapent Ethyl 1 GM CAPSULE FS SCH (17:00)
[2023-05-08] MEDS ORDERED: Non-Formulary Item 1 EACH (Icosapent Ethyl 1 GM Capsule) PO SCH (17:00)
[2023-05-08] MEDS ORDERED: metFORMIN 850 MG TAB PO SCH (17:00)
[2023-05-08] MEDS ORDERED: Non-Formulary Item 1 EACH (Metformin Hcl [Metformin Hcl] 1,000 MG Tablet) PO SCH (17:00)
[2023-05-09] MEDS ORDERED: Clopidogrel Bisulfate 75 MG TAB PO SCH (09:00)
[2023-05-09] MEDS ORDERED: Lisinopril 2.5 MG TAB PO SCH (09:00)
[2023-05-09] MEDS ORDERED: Lisinopril 20 MG TAB PO SCH (09:00)
== END 2023-05-08 18:05 | disposition left against medical advice (07) ==
LOC: ERS 16:37 → 2SW 18:48
PROVIDERS: ADMIT Family Medicine; ATTEND Family Medicine
DX: R55 Syncope and collapse (principal); I21.4 Non-ST elevation (NSTEMI) myocardial infarction; I65.21 Occlusion and stenosis of right carotid artery; I25.10 Atherosclerotic heart disease of native coronary artery without angina pectoris; I25.2 Old myocardial infarction; I10 Essential (primary) hypertension; D72.829 Elevated white blood cell count, unspecified; E11.65 Type 2 diabetes mellitus with hyperglycemia; E78.5 Hyperlipidemia, unspecified; F17.210 Nicotine dependence, cigarettes, uncomplicated; Z79.84 Long term (current) use of oral hypoglycemic drugs; Z79.02 Long term (current) use of antithrombotics/antiplatelets; Z79.4 Long term (current) use of insulin; Z95.5 Presence of coronary angioplasty implant and graft; Z79.899 Other long term (current) drug therapy
CPT/HCPCS: 71045; 78452; 80053; 80061; 80306; 80307; 81001; 82550 ×2; 82553; 82962 ×2; 83036; 83735; 84100; 84146; 84484 ×2; 85025; 93005; 93017; 93306; 93880; 96372; 99285; A9500; G0378 ×3; 36415; 36416; 84443; J0153; J1650; J1815; J7120

== ENCOUNTER 2023-05-16 08:10 | Observation (INO) | payer OTHER, MEDICAID ==
[2023-05-16 08:43] LABS: #Basophils 0.1 thou/uL (0.0-0.2); #Eosinphils 0.2 thou/uL (0.0-0.7); #Monocytes 0.9 thou/uL (0.11-0.59); #Neutrophils 7.6 thou/uL (1.40-6.50); %Basophils 0.5 % (0.0-1.0); %Eosinophils 1.5 % (0.0-10.0); %Lymphocytes 24.6 % (21.0-51.0); %Monocytes 7.3 % (0.0-10.0); %Neutrophils 65.5 % (42.0-75.0); Hemoglobin 15.8 g/dL (14.0-18.0); Mean Corpuscular HGB CONC 33.7 g/dL (32.0-36.0); Mean Corpuscular Hemoglobin 31.7 pg (27.0-31.0); Mean Platelet Volume 9.3 fL (7.4-10.4); Platelet Count 201 10x3/uL (130-400); RBC Distribution Width 13.5 % (11.5-14.5); Red Blood Cell (RBC) Count 4.99 mill/uL (4.70-6.10); White Blood Cell (WBC) Count 11.6 10x3/uL (4.8-10.8)
[2023-05-16] MEDS ORDERED: Nitroglycerin 2% Ointment 1 INCH/1 GM Packet ONE (08:44)
[2023-05-16] MEDS ORDERED: Aspirin Chewable 81 MG TAB ONE (08:44)
[2023-05-16 09:10] LABS: ALT (SGPT) 46 U/L (8-55); AST (SGOT) 24 U/L (5-34); Alkaline Phosphatase 136 U/L (40-110); Anion Gap 12 mmol/L (10-20); BUN (Urea Nitrogen) 16 mg/dL (8.4-25.7); Bilirubin, Total 0.3 mg/dL (0.2-1.2); CK (CPK) 138 U/L (30-200); Calc. Creatinine Clearance 0 mL/min (70-130); Calcium 9.2 mg/dL (7.8-10.44); Carbon Dioxide 23 mmol/L (23-31); Chloride 106 mmol/L (98-107); Estimated GFR 91; Globulin 3.2 g/dL (2.4-3.5); Glucose 243 mg/dL (83-110); Lipase 46 U/L (8-78); Potassium 4.4 mmol/L (3.5-5.1); Protein, Total 7.2 g/dL (5.8-8.1); Sodium 137 mmol/L (136-145)
[2023-05-16 11:52] LABS: Troponin I Less than 0.010 ng/mL (< 0.028)
[2023-05-16] MEDS ORDERED: Ondansetron ODT 4 MG TAB PO PRN (12:10)
[2023-05-16] MEDS ORDERED: Acetaminophen 325 MG TAB PO PRN (12:10)
[2023-05-16 14:51] VITALS: BMI 28.0
[2023-05-16] MEDS ORDERED: Albuterol 200 PUFF (6.7GM INHALER) INH PRN (16:16)
[2023-05-16] MEDS ORDERED: HumaLOG 300 UNITS/3 ML VIAL SC PRN ×2 (16:19)
[2023-05-16] MEDS ORDERED: Dextrose 50% Abboject 50 ML SYRINGE SLOW IVP PRN (16:19)
[2023-05-16] MEDS ORDERED: Glucagon 1 MG/ML KIT IM PRN (16:19)
[2023-05-16] MEDS ORDERED: Dextrose 5% in Water 1,000 ML IV PRN (16:19)
[2023-05-16] MEDS ORDERED: Insulin Glargine 30 UNITS/0.3 ML VIAL SC SCH ×2 (16:30→21:00)
[2023-05-16] MEDS ORDERED: Nitroglycerin 0.4 MG TAB (25 Tab Bottle) SL PRN (16:34)
[2023-05-16] MEDS: metFORMIN 850 MG TAB PO SCH (18:02)
[2023-05-16] MEDS: HumaLOG 300 UNITS/3 ML VIAL SC SCH (18:02)
[2023-05-16] MEDS: Icosapent Ethyl 1 GM CAPSULE PO SCH (18:02)
[2023-05-16] MEDS: Gabapentin 100 MG CAP PO SCH (19:23)
[2023-05-16] MEDS: Atorvastatin Calcium 40 MG TAB PO SCH (19:24)
[2023-05-16] MEDS ORDERED: Aspirin 81 mg Enteric Coated Tablet PO SCH (21:00)
[2023-05-17 05:43] LABS: #Basophils 0.1 thou/uL (0.0-0.2); #Eosinphils 0.3 thou/uL (0.0-0.7); #Monocytes 0.9 thou/uL (0.11-0.59); #Neutrophils 7.2 thou/uL (1.40-6.50); %Basophils 0.6 % (0.0-1.0); %Eosinophils 2.4 % (0.0-10.0); %Lymphocytes 28.8 % (21.0-51.0); %Monocytes 7.2 % (0.0-10.0); %Neutrophils 60.6 % (42.0-75.0); Hemoglobin 15.4 g/dL (14.0-18.0); Mean Corpuscular Hemoglobin 33.3 pg (27.0-31.0); Mean Platelet Volume 10.1 fL (7.4-10.4); Platelet Count 216 10x3/uL (130-400); RBC Distribution Width 13.9 % (11.5-14.5); Red Blood Cell (RBC) Count 4.63 mill/uL (4.70-6.10); White Blood Cell (WBC) Count 11.9 10x3/uL (4.8-10.8)
[2023-05-17 06:14] LABS: Anion Gap 12 mmol/L (10-20); BUN (Urea Nitrogen) 15 mg/dL (8.4-25.7); Calc. Creatinine Clearance 81 mL/min (70-130); Calcium 8.9 mg/dL (7.8-10.44); Carbon Dioxide 22 mmol/L (23-31); Chloride 110 mmol/L (98-107); Estimated GFR 91; Glucose 161 mg/dL (83-110); Potassium 4.3 mmol/L (3.5-5.1); Sodium 140 mmol/L (136-145)
[2023-05-17] MEDS ORDERED: Communication Order-Pharmacy FS SCH (06:45)
[2023-05-17] MEDS ORDERED: Heparin 10,000 UNITS/ 10 ML VIAL ONE (07:14)
[2023-05-17] MEDS ORDERED: Lidocaine 1% (PF) 30 ML VIAL ONE (07:14)
[2023-05-17] MEDS ORDERED: Nitroglycerin 50 MG/250 ML BOT 250 ML ONE (07:15)
[2023-05-17] MEDS ORDERED: Midazolam HCl 2 mg/2 ml Vial ONE (07:50)
[2023-05-17] MEDS ORDERED: fentaNYL 50 mcg/mL 1 mL Vial ONE (07:51)
[2023-05-17] MEDS ORDERED: Bivalirudin 250 MG VIAL ONE (08:52)
[2023-05-17] MEDS ORDERED: Clopidogrel Bisulfate 75 MG TAB ONE (09:08)
[2023-05-17] MEDS ORDERED: Sodium Chloride 0.9% 1,000 ML IV SCH (09:15)
[2023-05-17] MEDS ORDERED: Morphine 2 MG/ML VIAL SLOW IVP PRN (09:16)
[2023-05-17] MEDS ORDERED: Morphine 4 MG/ML VIAL SLOW IVP PRN (09:16)
[2023-05-17] MEDS ORDERED: Iopamidol 370 76% 100 ML VIAL ONE (11:06)
[2023-05-17] MEDS ORDERED: Morphine 4 MG/ML VIAL ONE (11:39)
[2023-05-17] MEDS: metFORMIN 850 MG TAB PO SCH (13:14)
[2023-05-17] MEDS: HumaLOG 300 UNITS/3 ML VIAL SC SCH ×3 (13:14→18:08)
[2023-05-17] MEDS: Gabapentin 100 MG CAP PO SCH ×2 (13:32→19:54)
[2023-05-17] MEDS: Lisinopril 20 MG TAB PO SCH (13:32)
[2023-05-17] MEDS: Aspirin 81 mg Enteric Coated Tablet PO SCH (13:32)
[2023-05-17] MEDS: Icosapent Ethyl 1 GM CAPSULE PO SCH ×2 (13:32→16:33)
[2023-05-17] MEDS: Atorvastatin Calcium 40 MG TAB PO SCH (19:53)
[2023-05-18 05:44] LABS: #Basophils 0.1 thou/uL (0.0-0.2); #Eosinphils 0.2 thou/uL (0.0-0.7); #Monocytes 0.8 thou/uL (0.11-0.59); #Neutrophils 8.2 thou/uL (1.40-6.50); %Basophils 0.5 % (0.0-1.0); %Eosinophils 1.8 % (0.0-10.0); %Lymphocytes 24.4 % (21.0-51.0); %Monocytes 6.2 % (0.0-10.0); %Neutrophils 66.6 % (42.0-75.0); Hemoglobin 15.8 g/dL (14.0-18.0); Mean Corpuscular HGB CONC 33.4 g/dL (32.0-36.0); Mean Corpuscular Hemoglobin 31.8 pg (27.0-31.0); Mean Corpuscular Volume 95.2 fl (78.0-98.0); Mean Platelet Volume 9.4 fL (7.4-10.4); Platelet Count 223 10x3/uL (130-400); RBC Distribution Width 13.7 % (11.5-14.5); Red Blood Cell (RBC) Count 4.97 mill/uL (4.70-6.10); White Blood Cell (WBC) Count 12.4 10x3/uL (4.8-10.8)
[2023-05-18 06:50] LABS: ALT (SGPT) 62 U/L (8-55); AST (SGOT) 41 U/L (5-34); Albumin 4.2 g/dL (3.4-4.8); Alkaline Phosphatase 161 U/L (40-110); Anion Gap 13 mmol/L (10-20); BUN (Urea Nitrogen) 11 mg/dL (8.4-25.7); Bilirubin, Total 0.7 mg/dL (0.2-1.2); Calc. Creatinine Clearance 85 mL/min (70-130); Calcium 9.9 mg/dL (7.8-10.44); Carbon Dioxide 25 mmol/L (23-31); Chloride 103 mmol/L (98-107); Estimated GFR 92; Globulin 3.5 g/dL (2.4-3.5); Glucose 163 mg/dL (83-110); Potassium 4.2 mmol/L (3.5-5.1); Protein, Total 7.7 g/dL (5.8-8.1); Sodium 137 mmol/L (136-145)
[2023-05-18] MEDS: Gabapentin 100 MG CAP PO SCH (08:59)
[2023-05-18] MEDS: Aspirin 81 mg Enteric Coated Tablet PO SCH (08:59)
[2023-05-18] MEDS: Lisinopril 20 MG TAB PO SCH (08:59)
[2023-05-18] MEDS: HumaLOG 300 UNITS/3 ML VIAL SC SCH ×2 (08:59→12:17)
[2023-05-18] MEDS ORDERED: Clopidogrel Bisulfate 75 MG TAB PO SCH (09:00)
[2023-05-18] MEDS ORDERED: Insulin Glargine 30 UNITS/0.3 ML VIAL SC SCH (11:45)
[2023-05-18 11:55] VITALS: BP 114/63; TEMP 98.4
[2023-05-18] MEDS: Icosapent Ethyl 1 GM CAPSULE PO SCH (12:17)
[2023-05-19] MEDS ORDERED: Insulin Glargine 30 UNITS/0.3 ML VIAL SC SCH (09:00)
== END 2023-05-18 13:25 | disposition home or self-care (01) ==
LOC: ERS 08:10 → ERHOLD 10:54 → 2SW 14:18
PROVIDERS: ADMIT Student in an Organized Health Care Education/Training Program; ATTEND Student in an Organized Health Care Education/Training Program
DX: R07.89 Other chest pain (principal); I25.10 Atherosclerotic heart disease of native coronary artery without angina pectoris; I10 Essential (primary) hypertension; I73.9 Peripheral vascular disease, unspecified; E11.9 Type 2 diabetes mellitus without complications; Z95.5 Presence of coronary angioplasty implant and graft; Z79.82 Long term (current) use of aspirin; Z79.02 Long term (current) use of antithrombotics/antiplatelets; Z79.84 Long term (current) use of oral hypoglycemic drugs; Z79.899 Other long term (current) drug therapy; Z79.4 Long term (current) use of insulin; F17.210 Nicotine dependence, cigarettes, uncomplicated
CPT/HCPCS: 71045; 80048; 80053 ×2; 82550; 82962 ×3; 83690; 83880; 84484 ×2; 85025 ×3; 85347; 93005 ×3; 93458; 97139; 99285; C1769 ×3; C1874; C1887; C9600; G0378 ×3; J0583; J3010; 36415; 36416; 92928; 93010; 99152; 99153; J1644; J1815; J2001; J2250; J2270; J7050; Q9967

== ENCOUNTER 2024-05-08 07:22 | Emergency (ER) | payer OTHER ==
[2024-05-08] MEDS ORDERED: Orphenadrine Citrate 60 MG/2 ML VIAL ONE (09:18)
[2024-05-08] MEDS ORDERED: predniSONE 20 MG TAB ONE (09:38)
[2024-05-08] MEDS ORDERED: Ketorolac Tromethamine 30 MG (1 mL) VIAL ONE (09:39)
== END 2024-05-08 10:42 | disposition home or self-care (01) ==
LOC: ERS 07:22
DX: M54.42 Lumbago with sciatica, left side (principal); M54.41 Lumbago with sciatica, right side; G89.29 Other chronic pain; I10 Essential (primary) hypertension; E11.9 Type 2 diabetes mellitus without complications; I25.2 Old myocardial infarction; F17.210 Nicotine dependence, cigarettes, uncomplicated; E78.00 Pure hypercholesterolemia, unspecified; Z79.82 Long term (current) use of aspirin; Z79.4 Long term (current) use of insulin; Z79.84 Long term (current) use of oral hypoglycemic drugs; Z79.899 Other long term (current) drug therapy
CPT/HCPCS: J1885; J2360; J7512

== ENCOUNTER 2024-05-27 15:35 | Emergency (ER) | payer OTHER ==
[2024-05-27] MEDS ORDERED: methylPREDNISolone Sod Succ/PF 125 MG/2 ML VIAL ONE (16:25)
[2024-05-27 16:30] LABS: #Basophils 0.03 10x3/uL (0.0-0.2); %Basophils 0.2 % (0.0-1.0); %Eosinophils 0.3 % (0.0-10.0); %Lymphocytes 10.9 % (21.0-51.0); %Monocytes 5.7 % (0.0-10.0); %Neutrophils 81.6 % (42.0-75.0); Hemoglobin 16.5 g/dL (14.0-18.0); Mean Corpuscular HGB CONC 34.4 g/dL (32.0-36.0); Mean Corpuscular Hemoglobin 32.5 pg (27.0-31.0); Mean Corpuscular Volume 94.5 fL (78.0-98.0); Mean Platelet Volume 9.5 fL (7.4-10.4); Platelet Count 191 10x3/uL (130-400); RBC Distribution Width 14.1 % (11.5-14.5); Red Blood Cell (RBC) Count 5.08 mill/uL (4.70-6.10)
[2024-05-27 16:47] LABS: Acetaminophen Less than 10 mcg/mL (10.0-30.0); Alcohol Less than 10.0 mg/dL (Less than 10); Salicylate Less than 8.0 mg/dL (15.0-30.0)
[2024-05-27 16:49] LABS: ALT (SGPT) 25 U/L (8-55); AST (SGOT) 18 U/L (5-34); Albumin 3.8 g/dL (3.4-4.8); Alkaline Phosphatase 84 U/L (40-110); Anion Gap 20 mmol/L (10-20); BUN (Urea Nitrogen) 24 mg/dL (8.4-25.7); Bilirubin, Total 1.3 mg/dL (0.2-1.2); CK (CPK) 163 U/L (30-200); Calc. Creatinine Clearance 0 mL/min (70-130); Calcium 9.3 mg/dL (7.8-10.44); Carbon Dioxide 14 mmol/L (23-31); Chloride 102 mmol/L (98-107); Estimated GFR 53; Globulin 3.5 g/dL (2.4-3.5); Glucose 207 mg/dL (83-110); Lipase 22 U/L (8-78); Magnesium 1.7 mg/dL (1.6-2.6); Potassium 3.9 mmol/L (3.5-5.1); Protein, Total 7.3 g/dL (5.8-8.1); Sodium 132 mmol/L (136-145)
[2024-05-27 16:52] LABS: Troponin I 0.022 ng/mL (< 0.028)
== END 2024-05-27 18:13 | disposition home or self-care (01) ==
LOC: ERS 15:35
DX: T78.40XA Allergy, unspecified, initial encounter (principal); E78.00 Pure hypercholesterolemia, unspecified; I10 Essential (primary) hypertension; E11.9 Type 2 diabetes mellitus without complications; F17.210 Nicotine dependence, cigarettes, uncomplicated; Z79.899 Other long term (current) drug therapy; Z79.84 Long term (current) use of oral hypoglycemic drugs; Z79.4 Long term (current) use of insulin; Z79.82 Long term (current) use of aspirin
CPT/HCPCS: 71045; 80053; 80307; 82550; 83605; 83690; 83735; 83880; 84484; 85025; 93005; J2930; 36415; 96374

== ENCOUNTER 2024-12-18 10:40 | Emergency (ER) | payer OTHER ==
[2024-12-18 11:15] LABS: Bacteria/HPF None Seen HPF (None Seen); Bilirubin Negative (Negative); Blood, Urine 2+ (Negative); CAUTI Indications for Culture Pelvic or flank pain; Clarity Turbid (Clear); Glucose, Urine (Dipstick) 70 mg/dL (Negative); Ketone, Urine Negative (Negative); Leukocyte 500 Leu/uL (Negative); Nitrite Negative (Negative); Protein, Urine (Dipstick) 70 mg/dL (Neg-Trace); RBC/HPF 21-50 HPF (0-3); Specific Gravity, Urine 1.015 (1.002-1.036); Squamous Epithelial 0-3 HPF (0-3); Urobilinogen Normal mg/dL (Less than 2); pH, Urine 5.5 (5.0-9.0)
[2024-12-18 11:16] LABS: WBC/HPF Greater than 50 HPF (0-3)
[2024-12-18 11:18] LABS: Urine Culture Reflex Yes Yes
[2024-12-18 11:43] LABS: #Basophils 0.09 10x3/uL (0.0-0.2); %Basophils 0.8 % (0.0-1.0); %Eosinophils 1.8 % (0.0-10.0); %Lymphocytes 26.8 % (21.0-51.0); %Monocytes 5.5 % (0.0-10.0); %Neutrophils 64.6 % (42.0-75.0); Hematocrit 44.8 % (42.0-52.0); Hemoglobin 14.5 g/dL (14.0-18.0); Mean Corpuscular HGB CONC 32.4 g/dL (32.0-36.0); Mean Corpuscular Volume 92.8 fL (78.0-98.0); Mean Platelet Volume 9.3 fL (7.4-10.4); Platelet Count 236 10x3/uL (130-400); RBC Distribution Width 13.7 % (11.5-14.5); Red Blood Cell (RBC) Count 4.83 mill/uL (4.70-6.10)
[2024-12-18 11:59] LABS: ALT (SGPT) 11 U/L (Less than 45); AST (SGOT) 22 U/L (11-34); Alkaline Phosphatase 114 U/L (40-110); Anion Gap 13 mmol/L (10-20); BUN (Urea Nitrogen) 16 mg/dL (8.4-25.7); Bilirubin, Total 0.4 mg/dL (0.3-1.2); Calc. Creatinine Clearance 0 mL/min (70-130); Calcium 9.7 mg/dL (7.8-10.44); Carbon Dioxide 23 mmol/L (23-31); Chloride 107 mmol/L (98-107); Estimated GFR 53; Globulin 4.4 g/dL (2.4-3.5); Glucose 202 mg/dL (83-110); Lipase 38 U/L (8-78); Potassium 4.8 mmol/L (3.5-5.1); Protein, Total 8.4 g/dL (5.8-8.1); Sodium 138 mmol/L (136-145)
== END 2024-12-18 11:21 | disposition left against medical advice (07) ==
LOC: ERS 10:40
DX: R10.9 Unspecified abdominal pain (principal); I10 Essential (primary) hypertension; E11.9 Type 2 diabetes mellitus without complications; F17.210 Nicotine dependence, cigarettes, uncomplicated
CPT/HCPCS: 36415; 80053; 81001; 83690; 85025; 87086; 99283

== ENCOUNTER 2024-12-19 00:52 | Inpatient (IN) | payer OTHER ==
[2024-12-19] MEDS ORDERED: Ketorolac Tromethamine 30 MG (1 mL) VIAL ONE (01:49)
[2024-12-19 01:55] LABS: #Basophils 0.08 10x3/uL (0.0-0.2); %Basophils 0.7 % (0.0-1.0); %Eosinophils 3.1 % (0.0-10.0); %Lymphocytes 27.9 % (21.0-51.0); %Monocytes 7.3 % (0.0-10.0); %Neutrophils 60.6 % (42.0-75.0); Hematocrit 41.6 % (42.0-52.0); Hemoglobin 13.8 g/dL (14.0-18.0); Mean Corpuscular HGB CONC 33.2 g/dL (32.0-36.0); Mean Corpuscular Hemoglobin 30.3 pg (27.0-31.0); Mean Corpuscular Volume 91.2 fL (78.0-98.0); Mean Platelet Volume 9.1 fL (7.4-10.4); Platelet Count 219 10x3/uL (130-400); RBC Distribution Width 13.6 % (11.5-14.5); Red Blood Cell (RBC) Count 4.56 mill/uL (4.70-6.10)
[2024-12-19 02:19] LABS: ALT (SGPT) 11 U/L (Less than 45); AST (SGOT) 19 U/L (11-34); Albumin 3.8 g/dL (3.1-4.5); Alkaline Phosphatase 113 U/L (40-110); Anion Gap 14 mmol/L (10-20); BUN (Urea Nitrogen) 25 mg/dL (8.4-25.7); Bilirubin, Total 0.3 mg/dL (0.3-1.2); Calc. Creatinine Clearance 0 mL/min (70-130); Calcium 9.3 mg/dL (7.8-10.44); Carbon Dioxide 21 mmol/L (23-31); Chloride 108 mmol/L (98-107); Estimated GFR 47; Glucose 145 mg/dL (83-110); Magnesium 1.7 mg/dL (1.6-2.6); Potassium 4.7 mmol/L (3.5-5.1); Protein, Total 7.8 g/dL (5.8-8.1); Sodium 138 mmol/L (136-145)
[2024-12-19 02:32] LABS: Troponin I 0.014 ng/mL (< 0.028)
[2024-12-19 02:38] LABS: Bilirubin Negative (Negative); Blood, Urine 1+ (Negative); Clarity Clear (Clear); Glucose, Urine (Dipstick) Normal (Negative); Ketone, Urine Negative (Negative); Leukocyte 500 Leu/uL (Negative); Nitrite Negative (Negative); Protein, Urine (Dipstick) Negative (Neg-Trace); RBC/HPF 0-3 HPF (0-3); Specific Gravity, Urine 1.004 (1.002-1.036); Squamous Epithelial None Seen HPF (0-3); Urobilinogen Normal mg/dL (Less than 2); WBC/HPF Greater than 50 HPF (0-3); pH, Urine 6.5 (5.0-9.0)
[2024-12-19 02:48] LABS: Bacteria/HPF 1+ HPF (None Seen)
[2024-12-19 02:52] LABS: CAUTI Indications for Culture Dysuria,urgency,freq
[2024-12-19] MEDS ORDERED: Vancomycin (BATCH) 1.75 GM in Premix 1 BAG IVPB SCH (03:30)
[2024-12-19] MEDS ORDERED: VANCOMYCIN ONE (03:30)
[2024-12-19] MEDS ORDERED: Morphine 4 MG/ML VIAL ONE (03:33)
[2024-12-19] MEDS ORDERED: Sodium Chloride 0.9% 100 ML ONE (03:33)
[2024-12-19] MEDS ORDERED: cefTRIAXone (ROCEPHIN) 2 GM VIAL ONE (03:33)
[2024-12-19] MEDS ORDERED: Ondansetron ODT 4 MG TAB SL PRN (03:45)
[2024-12-19] MEDS ORDERED: Ondansetron PF 4 MG/2 ML Vial IVP PRN (03:45)
[2024-12-19] MEDS ORDERED: Dextrose 5% in Water 1,000 ML IV PRN (03:49)
[2024-12-19] MEDS ORDERED: Insulin Lispro 100 UNIT/ML 10 ML VIAL SC PRN (03:49)
[2024-12-19] MEDS ORDERED: Glucagon 1 MG/ML KIT IM PRN (03:49)
[2024-12-19] MEDS ORDERED: Dextrose 50% Abboject 50 ML SYRINGE SLOW IVP PRN (03:49)
[2024-12-19 04:40] VITALS: BMI 24.5
[2024-12-19] MEDS: Lactated Ringer's 1,000 ML IV SCH (05:14)
[2024-12-19] MEDS ORDERED: Lisinopril 20 MG TAB PO SCH (09:00)
[2024-12-19] MEDS ORDERED: Insulin Glargine 30 UNITS/0.3 ML VIAL SC SCH ×2 (09:00→21:00)
[2024-12-19] MEDS ORDERED: Iopamidol 370 76% 100 ML VIAL ONE (09:34)
[2024-12-19] MEDS: metFORMIN 500 MG TAB PO SCH (10:05)
[2024-12-19] MEDS: Tamsulosin HCl 0.4 MG CAP PO SCH (10:05)
[2024-12-19] MEDS: Clopidogrel Bisulfate 75 MG TAB PO SCH (10:06)
[2024-12-19] MEDS: Enoxaparin 40 MG (0.4 mL) SYRINGE SC SCH (10:06)
[2024-12-19] MEDS: Aspirin 81 mg Enteric Coated Tablet PO SCH (10:06)
[2024-12-19] MEDS: Insulin Glargine 30 UNITS/0.3 ML VIAL SC SCH ×2 (10:07→21:40)
[2024-12-19] MEDS: Ketorolac Tromethamine 30 MG (1 mL) VIAL IVP PRN (10:12)
[2024-12-19 11:39] LABS: Hemoglobin A1c 8.7 % (4.0-6.0)
[2024-12-19] MEDS: Acetaminophen 325 MG TAB PO PRN (14:44)
[2024-12-19] MEDS: NIFEdipine XL 30 MG ER.TAB PO SCH (14:44)
[2024-12-19] MEDS: Morphine 2 MG/ML VIAL SLOW IVP PRN (14:45)
[2024-12-19] MEDS: Atorvastatin Calcium 40 MG TAB PO SCH (21:39)
[2024-12-20 02:04] LABS: Chlam.trachomatis by PCR,Urine Not Detected (NotDetected); GC N.gonorrhoeae PCR,UrineVOID Not Detected (NotDetected)
[2024-12-20 05:17] LABS: #Basophils 0.08 10x3/uL (0.0-0.2); %Basophils 0.5 % (0.0-1.0); %Eosinophils 1.4 % (0.0-10.0); %Lymphocytes 20.5 % (21.0-51.0); %Neutrophils 72.2 % (42.0-75.0); Hematocrit 40.7 % (42.0-52.0); Hemoglobin 13.5 g/dL (14.0-18.0); Mean Corpuscular HGB CONC 33.2 g/dL (32.0-36.0); Mean Corpuscular Hemoglobin 30.1 pg (27.0-31.0); Mean Corpuscular Volume 90.6 fL (78.0-98.0); Mean Platelet Volume 9.2 fL (7.4-10.4); Platelet Count 225 10x3/uL (130-400); RBC Distribution Width 13.6 % (11.5-14.5); Red Blood Cell (RBC) Count 4.49 mill/uL (4.70-6.10)
[2024-12-20] MEDS: cefTRIAXone\\ROCEPHIN 1 GM in Sodium Chloride 0.9% 100 ML IVPB SCH (05:42)
[2024-12-20 05:47] LABS: Anion Gap 12 mmol/L (10-20); BUN (Urea Nitrogen) 23 mg/dL (8.4-25.7); Calc. Creatinine Clearance 51 mL/min (70-130); Calcium 8.9 mg/dL (7.8-10.44); Carbon Dioxide 19 mmol/L (23-31); Chloride 114 mmol/L (98-107); Estimated GFR 56; Glucose 87 mg/dL (83-110); Potassium 4.6 mmol/L (3.5-5.1); Sodium 140 mmol/L (136-145)
[2024-12-20] MEDS ORDERED: Insulin Glargine 30 UNITS/0.3 ML VIAL SC SCH ×2 (07:12→21:00)
[2024-12-20] MEDS: Insulin Glargine 30 UNITS/0.3 ML VIAL SC SCH (09:52)
[2024-12-20 12:52] VITALS: BP 183/76; TEMP 97.7
== END 2024-12-20 13:10 | disposition home or self-care (01) | DRG 690 ==
LOC: ERS 00:52 → SURG B 03:33
PROVIDERS: ADMIT Family Medicine; ATTEND Family Medicine
DX: N12 Tubulo-interstitial nephritis, not specified as acute or chronic (principal); R30.0 Dysuria; K76.0 Fatty (change of) liver, not elsewhere classified; E11.9 Type 2 diabetes mellitus without complications; I10 Essential (primary) hypertension; N17.9 Acute kidney failure, unspecified; I25.10 Atherosclerotic heart disease of native coronary artery without angina pectoris; E78.5 Hyperlipidemia, unspecified; B96.20 Unspecified Escherichia coli [E. coli] as the cause of diseases classified elsewhere; F17.210 Nicotine dependence, cigarettes, uncomplicated; Z79.899 Other long term (current) drug therapy; Z79.4 Long term (current) use of insulin; Z71.6 Tobacco abuse counseling; Z53.9 Procedure and treatment not carried out, unspecified reason; R10.9 Unspecified abdominal pain
CPT/HCPCS: 36415; 36416; 74177; 80048; 80053; 81001; 83036; 83605; 83690; 83735; 84153; 84484; 85025; 87040; 87086; 87491; 87591; 93005; 96365; 96375; 99283; J0696; J1650; J1815; J1885; J2270; J2272; J3370; J7120; Q9967